=== PATIENT | male | born 1965 | race Caucasian/White ===

== ENCOUNTER 2016-11-29 22:48 | Emergency (ER) | payer MEDICARE, OTHER ==
[2016-11-29] MEDS ORDERED: SODIUM CHLORIDE 0.9% 500 ML IV STA (23:26)
[2016-11-29] MEDS ORDERED: IPRATROPIUM-ALBUTEROL 3 ML NEB INHALATION STA ×3 (23:26→23:42)
[2016-11-29] MEDS ORDERED: methylPREDNISolone SOD SUCCI 125 MG/2 ML VIAL IV STA (23:26)
[2016-11-29] MEDS ORDERED: ALBUTEROL NEB (CONC) 2.5 MG/0.5 ML INHALATION STA (23:33)
[2016-11-29] MEDS ORDERED: ONDANSETRON 4 MG/2 ML VIAL IVP STA (23:53)
--- NOTE | 2016-11-29 23:53 | ED ---
SOB HPI - General Chief Complaint: Shortness of Breath Stated Complaint: Difficulty Breathing Source: patient Mode of arrival: ambulatory Limitations: no limitations - History of Present Illness Initial Comments: 51-year-old male with past medical history of COPD and asthma presented for evaluation of shortness of breath for the last 2 days. He states that he takes Symbicort Ventolin and albuterol and has had no improvement in his symptoms. He has been having URI symptoms during this time and has taken no other medications including antibiotics or steroids. He has previously seen Dr. Nunez (pulm) but hasn't had a return visit in quite some time. He states the shortness of breath has progressively been worsening and has been associated with wheezing, productive cough of green sputum, and subjective fevers and chills. He denies any chest pain, abdominal pain, lightheadedness, or dizziness. - Related Data Previous Rx's Medication Instructions Recorded Albuterol Inhaler [Ventolin Hfa 1 - 2 puff INHALATION Q6HR PRN #1 11/05/14 Inhaler] inhaler Budesonide/Formoterol Fumarate 2 puff INHALATION BID #1 hfa.aer.ad 11/05/14 [Symbicort 80-4.5 Mcg Inhaler] Cyclobenzaprine [Flexeril] 10 mg PO TID #15 tab 06/06/16 HYDROcodone/APAP 5-325MG [Aubrey 1 tab PO Q6HR PRN #15 tab 06/06/16 5-325] Doxycycline Hyclate 100 mg PO BID #14 tab 11/30/16 predniSONE 50 mg PO DAILY #5 tab 11/30/16 Allergies Allergy/AdvReac Type Severity Reaction Status Date / Time hydromorphone [From Dilaudid] Allergy Nausea & Verified 06/05/16 23:33 Vomiting Review of Systems ROS Statement: Those systems with pertinent positive or pertinent negative responses have been documented in the HPI. ROS Other: All systems not noted in ROS Statement are negative. Constitutional: Reports: fever, chills Eyes: Denies: eye pain, eye discharge, vision change ENT: Denies: ear pain, throat pain Respiratory: Reports: cough, dyspnea, wheezes. Denies: hemoptysis, stridor Cardiovascular: Denies: chest pain, palpitations, dyspnea on exertion, orthopnea , edema Endocrine: Denies: fatigue, polydipsia, polyuria Gastrointestinal: Denies: abdominal pain, nausea, vomiting, diarrhea, constipation Genitourinary: Denies: urgency, dysuria Musculoskeletal: Denies: back pain, arthralgia, myalgia Skin: Denies: rash, lesions, change in color, change in hair/nails Neurological: Denies: headache, weakness Psychiatric: Denies: anxiety, depression Hematological/Lymphatic: Denies: easy bleeding, easy bruising Past Medical History Past Medical History: Asthma, COPD, GERD/Reflux History of Any Multi-Drug Resistant Organisms: None Reported Past Surgical History: Hernia Repair, Orthopedic Surgery Additional Past Surgical History / Comment(s): right elbow surgery Past Anesthesia/Blood Transfusion Reactions: No Reported Reaction Past Psychological History: No Psychological Hx Reported Smoking Status: Current every day smoker Past Alcohol Use History: None Reported Past Drug Use History: Marijuana - Past Family History Mother Family Medical History: COPD Additional Family Medical History / Comment(s): father passed had cancer General Exam Limitations: no limitations General appearance: alert, in no apparent distress Head exam: Present: atraumatic, normocephalic, normal inspection Eye exam: Present: normal appearance, PERRL, EOMI. Absent: scleral icterus, conjunctival injection, periorbital swelling ENT exam: Present: normal exam, mucous membranes moist Neck exam: Present: normal inspection. Absent: tenderness, meningismus, lymphadenopathy Respiratory exam: Present: wheezes, decreased breath sounds (bibasilar). Absent : respiratory distress, rales, rhonchi, stridor, chest wall tenderness, accessory muscle use, prolonged expiratory (throughout all pinto) Cardiovascular Exam: Present: normal rhythm, tachycardia, normal heart sounds. Absent: systolic murmur, diastolic murmur GI/Abdominal exam: Present: soft, normal bowel sounds. Absent: distended, tenderness, guarding, rebound, rigid Rectal exam: Present: deferred Extremities exam: Present: normal inspection, full ROM, normal capillary refill. Absent: tenderness, pedal edema, joint swelling, calf tenderness Back exam: Present: normal inspection Neurological exam: Present: alert, oriented X3, CN II-XII intact Psychiatric exam: Present: normal affect, normal mood Skin exam: Present: warm, dry, intact, normal color. Absent: rash Course Vital Signs 11/29/16 11/29/16 11/29/16 22:49 23:45 23:58 Temperature 98.1 F Pulse Rate 106 H 104 H 88 Respiratory 24 Rate Blood Pressure 148/82 O2 Sat by Pulse 94 L Oximetry 11/30/16 00:08 Temperature Pulse Rate 105 H Respiratory Rate Blood Pressure O2 Sat by Pulse Oximetry Medical Decision Making - Medical Decision Making 51-year-old male with past medical history of COPD and asthma presented for evaluation of 2 days of gradual onset shortness of breath, cough, wheezing with associated URI symptoms. On physical examination he is in no apparent distress but lungs reveal wheezing bilaterally with diminished breath sounds bibasilarly to auscultation. There is no accessory muscle use. Oxygen saturation on room air is 91%. The remainder of his physical exam is benign. Although this appears to be an episode of acute exacerbation of COPD concern for pneumonia is also on the differential. We'll obtain chest x-ray, EKG, labs , and provide breathing treatments and steroids. labs reveal marked leukocytosis but otherwise no other significant abnormalities including a negative influenza swab. Chest X or shows no acute process. The patient remained afebrile during the entire Steve visit although he did develop an episode of nausea and vomiting during breathing treatments and steroid injection. He stated that this resolved on its own and did not require Zofran. He is informed of all results and offered admission however he stated that he was feeling much better at this time and that he would like to be discharged. 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 He'll be given a prescription for doxycycline and prednisone. He is further advised to return to this facility if his symptoms should worsen or persist. The patient acknowledged an understanding of this information and agreed with this plan of care. - Lab Data Result diagrams: 11/29/16 23:50 11/29/16 23:50 Lab Results 11/29/16 11/29/16 11/29/16 Range/Units 23:50 23:50 23:50 WBC 21.5 H (3.8-10.6) k/uL RBC 4.68 (4.30-5.90) m/uL Hgb 14.8 (13.0-17.5) gm/dL Hct 44.8 (39.0-53.0) % MCV 95.7 (80.0-100.0) fL MCH 31.7 (25.0-35.0) pg MCHC 33.1 (31.0-37.0) g/dL RDW 14.0 (11.5-15.5) % Plt Count 244 (150-450) k/uL Neutrophils % 78 % Lymphocytes % 13 % Monocytes % 6 % Eosinophils % 1 % Basophils % 0 % Neutrophils # 16.8 H (1.3-7.7) k/uL Lymphocytes # 2.8 (1.0-4.8) k/uL Monocytes # 1.2 H (0-1.0) k/uL Eosinophils # 0.3 (0-0.7) k/uL Basophils # 0.1 (0-0.2) k/uL Sodium 139 (137-145) mmol/L Potassium 4.4 (3.5-5.1) mmol/L Chloride 107 (98-107) mmol/L Carbon Dioxide 22 (22-30) mmol/L Anion Gap 10 mmol/L BUN 13 (9-20) mg/dL Creatinine 0.90 (0.66-1.25) mg/dL Est GFR (MDRD) Af Amer >60 (>60 ml/min/1.73 sqM) Est GFR (MDRD) Non-Af >60 (>60 ml/min/1.73 sqM) Glucose 97 (74-99) mg/dL Calcium 9.3 (8.4-10.2) mg/dL Influenza Type A RNA Not Detected (Not Detectd) Influenza Type B (PCR) Not Detected (Not Detectd) Disposition Clinical Impression: Acute exacerbation of chronic obstructive pulmonary disease (COPD), URI (upper respiratory infection), COPD exacerbation Disposition: HOME SELF-CARE Condition: Stable Instructions: COPD (Chronic Obstructive Pulmonary Disease) (ED), Chronic Lung Disease and Infection Prevention (ED) Additional Instructions: Please use medication as discussed. Please follow up with family doctor if symptoms have not improved over the next two days. Please return to the emergency room if your symptoms increase or worsen or for any other concerns. Prescriptions: Doxycycline Hyclate 100 mg PO BID #14 tab predniSONE 50 mg PO DAILY #5 tab Referrals: None,Stated [Primary Care Provider] - 1-2 days Time of Disposition: 01:02
[2016-11-30] LABS: Basophils # (A) 0.1 k/uL (0-0.2); Basophils % (A) 0 %; CH 32.1; CHCM 33.8; Eosinophils # (A) 0.3 k/uL (0-0.7); Eosinophils % (A) 1 %; HCT 44.8 % (39.0-53.0); HDW 2.27; HGB 14.8 gm/dL (13.0-17.5); Luc # (Auto) 0.37; Luc % (Auto) 2; Lymphocytes # (A) 2.8 k/uL (1.0-4.8); Lymphocytes % (A) 13 %; MCH 31.7 pg (25.0-35.0); MCHC 33.1 g/dL (31.0-37.0); MCV 95.7 fL (80.0-100.0); Mean Platelet Volume 7.4; Monocytes # (A) 1.2 k/uL (0-1.0); Monocytes % (A) 6 %; Neutrophils # (A) 16.8 k/uL (1.3-7.7); Neutrophils % (A) 78 %; RBC 4.68 m/uL (4.30-5.90); WBC 21.5 k/uL (3.8-10.6); WBC (Perox) 21.25
[2016-11-30 00:17] LABS: Anion Gap 10 mmol/L; Blood Urea Nitrogen 13 mg/dL (9-20); Calcium 9.3 mg/dL (8.4-10.2); Carbon Dioxide 22 mmol/L (22-30); Chloride 107 mmol/L (98-107); Glucose 97 mg/dL (74-99); Non-African American GFR(MDRD) >60 (>60 ml/min/1.73 sqM); Potassium 4.4 mmol/L (3.5-5.1); Sodium 139 mmol/L (137-145)
--- NOTE | 2016-11-30 00:49 | XR ---
EXAM: XR Chest, 2 Views CLINICAL HISTORY: SOB TECHNIQUE: Frontal and lateral views of the chest. COMPARISON: Chest x-ray dated 11/04/2014 FINDINGS: Lungs: Unremarkable. No consolidation. Pleural space: Unremarkable. No pneumothorax. Heart: Unremarkable. No cardiomegaly. Mediastinum: Unremarkable. Bones/joints: Unremarkable. IMPRESSION: Normal chest x-rays.
[2016-11-30 01:20] VITALS: BP 117/60; PULSE 92; RESP 18; TEMP 100.3
== END 2016-11-30 01:20 | disposition home or self-care (01) ==
LOC: EC 22:48
DX: J44.1 Chronic obstructive pulmonary disease with (acute) exacerbation (principal); J06.9 Acute upper respiratory infection, unspecified; R11.2 Nausea with vomiting, unspecified; D72.829 Elevated white blood cell count, unspecified; F17.200 Nicotine dependence, unspecified, uncomplicated; Z88.5 Allergy status to narcotic agent; Z53.8 Procedure and treatment not carried out for other reasons
CPT/HCPCS: 99285; 96374; 96361 ×2; 36415; 94640 ×2; 93005; 80048; 85025; 87502; 71020; J2930

== ENCOUNTER 2016-12-05 18:08 | Inpatient (IN) | payer MEDICARE ==
[2016-12-05] MEDS ORDERED: methylPREDNISolone SOD SUCCI 125 MG/2 ML VIAL IV STA ×2 (18:32→18:36)
[2016-12-05] MEDS ORDERED: IPRATROPIUM-ALBUTEROL 3 ML NEB INHALATION STA ×2 (18:36→20:45)
[2016-12-05] MEDS ORDERED: ONDANSETRON 4 MG/2 ML VIAL IVP STA (18:39)
[2016-12-05] MEDS ORDERED: ALBUTEROL NEBULIZED 2.5 MG/3 ML INHALATION STA (18:43)
[2016-12-05 19:02] LABS: Basophils # (A) 0.1 k/uL (0-0.2); Basophils % (A) 1 %; CH 31.7; CHCM 33.3; Eosinophils # (A) 0.8 k/uL (0-0.7); Eosinophils % (A) 4 %; HCT 42.7 % (39.0-53.0); HDW 2.44; HGB 14.1 gm/dL (13.0-17.5); Luc # (Auto) 0.48; Luc % (Auto) 3; Lymphocytes # (A) 3.7 k/uL (1.0-4.8); Lymphocytes % (A) 19 %; MCH 31.7 pg (25.0-35.0); MCHC 33.1 g/dL (31.0-37.0); MCV 95.7 fL (80.0-100.0); Mean Platelet Volume 7.3; Monocytes # (A) 1.2 k/uL (0-1.0); Monocytes % (A) 6 %; Neutrophils # (A) 12.9 k/uL (1.3-7.7); Neutrophils % (A) 67 %; RBC 4.46 m/uL (4.30-5.90); RDW 14.3 % (11.5-15.5); WBC 19.2 k/uL (3.8-10.6); WBC (Perox) 17.81
[2016-12-05 19:11] LABS: ALT 42 U/L (21-72); AST 26 U/L (17-59); Alkaline Phosphatase 84 U/L (38-126); Anion Gap 9 mmol/L; Blood Urea Nitrogen 16 mg/dL (9-20); Calcium 8.7 mg/dL (8.4-10.2); Carbon Dioxide 27 mmol/L (22-30); Chloride 104 mmol/L (98-107); Glucose 95 mg/dL (74-99); Non-African American GFR(MDRD) >60 (>60 ml/min/1.73 sqM); Potassium 3.7 mmol/L (3.5-5.1); Sodium 140 mmol/L (137-145); Total Bilirubin 0.5 mg/dL (0.2-1.3); Total Protein 6.9 g/dL (6.3-8.2)
[2016-12-05 19:19] LABS: Creatine Kinase 285 U/L (55-170)
--- NOTE | 2016-12-05 19:27 | XR ---
EXAMINATION TYPE: XR chest 2V DATE OF EXAM: 12/05/2016 7:20 PM COMPARISON: 11/30/2016 and 12/31/2008 HISTORY: 51-year-old male difficulty breathing TECHNIQUE: PA and lateral views FINDINGS: Heart is normal size. Aorta within normal limits. Diffuse interstitial prominence and peribronchial c uffing. Mild hyperinflation. Large appearance to the central pulmonary arteries. No consolidation or pleural effusion. IMPRESSION: Chronic changes, possible chronic bronchitis/asthma. There may be underlying COPD. Also, chronic bila teral hilar prominence may reflect pulmonary arterial hypertension. No infiltrate.
[2016-12-05 19:29] LABS: Partial Thromboplastin Time 24.4 sec (22.0-30.0); Prothrombin Time 10.6 sec (9.0-12.0)
[2016-12-05 19:33] LABS: Troponin I <0.012 ng/mL (0.000-0.034)
[2016-12-05 19:35] LABS: Creatine Kinase MB 3.3 ng/mL (0.0-2.4)
--- NOTE | 2016-12-05 19:36 | ED ---
SOB HPI - General Chief Complaint: Shortness of Breath Stated Complaint: diff breathing Time Seen by Provider: 12/05/16 18:24 Source: patient Mode of arrival: wheelchair Limitations: no limitations - History of Present Illness Initial Comments: Shortness of breath is ongoing process unfortunately with the he has smoked over 40 years has a history of chronic COPD he denies any chest pain no nausea no vomiting no fever no chills he does bring up some phlegm and he has chest pain when he takes a deep breath. He denies any headaches no blurred vision no slurred speech no abdominal pain no signs of TIA or CVA he was recently on steroids she just finished a course of steroids - Related Data Home Medications Medication Instructions Recorded Confirmed Albuterol Inhaler [Ventolin Hfa 1 - 2 puff INHALATION RT-Q6H PRN 12/05/16 Inhaler] Albuterol Nebulized [Ventolin 2.5 mg INHALATION RT-QID 12/05/16 12/05/16 Nebulized] Budesonide/Formoterol Fumarate 2 puff INHALATION RT-BID 12/05/16 12/05/16 [Symbicort 80-4.5 Mcg Inhaler] Previous Rx's Medication Instructions Recorded Doxycycline Hyclate 100 mg PO BID #14 tab 11/30/16 Allergies Allergy/AdvReac Type Severity Reaction Status Date / Time hydromorphone [From Dilaudid] Allergy Nausea & Verified 12/05/16 19:16 Vomiting Review of Systems ROS Statement: Those systems with pertinent positive or pertinent negative responses have been documented in the HPI. ROS Other: All systems not noted in ROS Statement are negative. Past Medical History Past Medical History: Asthma, COPD, GERD/Reflux History of Any Multi-Drug Resistant Organisms: None Reported Past Surgical History: Hernia Repair, Orthopedic Surgery Additional Past Surgical History / Comment(s): right elbow surgery Past Anesthesia/Blood Transfusion Reactions: No Reported Reaction Past Psychological History: No Psychological Hx Reported Smoking Status: Current every day smoker Past Alcohol Use History: None Reported Past Drug Use History: Marijuana - Past Family History Mother Family Medical History: COPD Additional Family Medical History / Comment(s): father passed had cancer General Exam - General Exam Comments Initial Comments: General: The patient is awake and alert, in no distress Skin: Skin is warm and dry and no rashes or lesions are noted. Eye: Pupils are equal, round and reactive to light, extra-ocular movements are intact; there is normal conjunctiva bilaterally. Ears, nose, mouth and throat: There are moist mucous membranes and no oral lesions. Neck: The neck is supple, there is no tenderness or signs of any meningitis Cardiovascular: There is a regular rate and rhythm. No murmur, rub or gallop is appreciated. Respiratory: To auscultation bilateral, exam consistent with him moderate to severe COPD Gastrointestinal: Soft, non-distended, non-tender abdomen without masses or organomegaly noted. There is no rebound or guarding present. Bowel sounds are unremarkable. Back: There is no tenderness to palpation in the midline. There is no obvious deformity. Musculoskeletal: Normal ROM, no tenderness, There is no pedal edema. There is no calf tenderness or swelling. No cords were appreciated. Neurological: CN II-XII intact, Cranial nerves III through XII are intact. There are no obvious motor or sensory deficits. Coordination appears grossly intact. Speech is normal. Psychiatric: Cooperative, appropriate mood & affect, normal judgment. Limitations: no limitations Course Vital Signs 12/05/16 12/05/16 12/05/16 18:11 18:25 18:34 Temperature 98.6 F Pulse Rate 94 103 H Respiratory 22 22 Rate Blood Pressure 150/78 O2 Sat by Pulse 91 L Oximetry 12/05/16 12/05/16 12/05/16 18:44 18:48 19:00 Temperature Pulse Rate 94 91 99 Respiratory 26 H Rate Blood Pressure 131/68 O2 Sat by Pulse 95 Oximetry 12/05/16 12/05/16 12/05/16 19:48 20:49 20:50 Temperature Pulse Rate 90 97 81 Respiratory 25 H 24 Rate Blood Pressure 125/66 110/77 O2 Sat by Pulse 95 90 L Oximetry 12/05/16 21:01 Temperature Pulse Rate 85 Respiratory Rate Blood Pressure O2 Sat by Pulse Oximetry EKG is a normal sinus rhythm ventricular rate is 83 AL interval is 1:30 QRS duration is 78 QT/QTc is 356/418 review of this EKG does not reveal any ST elevation or ST depression Medical Decision Making - Lab Data Result diagrams: 12/05/16 18:25 12/05/16 18:25 Lab Results 12/05/16 12/05/16 12/05/16 Range/Units 18:25 18:25 18:25 WBC 19.2 H (3.8-10.6) k/uL RBC 4.46 (4.30-5.90) m/uL Hgb 14.1 (13.0-17.5) gm/dL Hct 42.7 (39.0-53.0) % MCV 95.7 (80.0-100.0) fL MCH 31.7 (25.0-35.0) pg MCHC 33.1 (31.0-37.0) g/dL RDW 14.3 (11.5-15.5) % Plt Count 331 (150-450) k/uL Neutrophils % 67 % Lymphocytes % 19 % Monocytes % 6 % Eosinophils % 4 % Basophils % 1 % Neutrophils # 12.9 H (1.3-7.7) k/uL Lymphocytes # 3.7 (1.0-4.8) k/uL Monocytes # 1.2 H (0-1.0) k/uL Eosinophils # 0.8 H (0-0.7) k/uL Basophils # 0.1 (0-0.2) k/uL PT (9.0-12.0) sec INR (<1.1) APTT (22.0-30.0) sec D-Dimer (<0.60) mg/L FEU Sodium 140 (137-145) mmol/L Potassium 3.7 (3.5-5.1) mmol/L Chloride 104 (98-107) mmol/L Carbon Dioxide 27 (22-30) mmol/L Anion Gap 9 mmol/L BUN 16 (9-20) mg/dL Creatinine 0.86 (0.66-1.25) mg/dL Est GFR (MDRD) Af Amer >60 (>60 ml/min/1.73 sqM) Est GFR (MDRD) Non-Af >60 (>60 ml/min/1.73 sqM) Glucose 95 (74-99) mg/dL Calcium 8.7 (8.4-10.2) mg/dL Magnesium 2.0 (1.6-2.3) mg/dL Total Bilirubin 0.5 (0.2-1.3) mg/dL AST 26 (17-59) U/L ALT 42 (21-72) U/L Alkaline Phosphatase 84 (38-126) U/L Total Creatine Kinase 285 H (55-170) U/L CK-MB (CK-2) 3.3 H* (0.0-2.4) ng/mL CK-MB (CK-2) Rel Index 1.2 Troponin I <0.012 (0.000-0.034) ng/mL NT-Pro-B Natriuret Pep pg/mL Total Protein 6.9 (6.3-8.2) g/dL Albumin 3.8 (3.5-5.0) g/dL 12/05/16 12/05/16 Range/Units 18:25 18:25 WBC (3.8-10.6) k/uL RBC (4.30-5.90) m/uL Hgb (13.0-17.5) gm/dL Hct (39.0-53.0) % MCV (80.0-100.0) fL MCH (25.0-35.0) pg MCHC (31.0-37.0) g/dL RDW (11.5-15.5) % Plt Count (150-450) k/uL Neutrophils % % Lymphocytes % % Monocytes % % Eosinophils % % Basophils % % Neutrophils # (1.3-7.7) k/uL Lymphocytes # (1.0-4.8) k/uL Monocytes # (0-1.0) k/uL Eosinophils # (0-0.7) k/uL Basophils # (0-0.2) k/uL PT 10.6 (9.0-12.0) sec INR 1.0 (<1.1) APTT 24.4 (22.0-30.0) sec D-Dimer 0.31 (<0.60) mg/L FEU Sodium (137-145) mmol/L Potassium (3.5-5.1) mmol/L Chloride (98-107) mmol/L Carbon Dioxide (22-30) mmol/L Anion Gap mmol/L BUN (9-20) mg/dL Creatinine (0.66-1.25) mg/dL Est GFR (MDRD) Af Amer (>60 ml/min/1.73 sqM) Est GFR (MDRD) Non-Af (>60 ml/min/1.73 sqM) Glucose (74-99) mg/dL Calcium (8.4-10.2) mg/dL Magnesium (1.6-2.3) mg/dL Total Bilirubin (0.2-1.3) mg/dL AST (17-59) U/L ALT (21-72) U/L Alkaline Phosphatase (38-126) U/L Total Creatine Kinase (55-170) U/L CK-MB (CK-2) (0.0-2.4) ng/mL CK-MB (CK-2) Rel Index Troponin I (0.000-0.034) ng/mL NT-Pro-B Natriuret Pep 85 pg/mL Total Protein (6.3-8.2) g/dL Albumin (3.5-5.0) g/dL Critical Care Time Total Critical Care Time: 30 Critical Care Time: Since the respiratory rate was quite fast when he came in he got short acting bronchodilators and Pulmicort, he also was giving him IV Solu-Medrol and empirically was given some antibiotics as well and is feeling better his white count is 19.2 this could be from occult infection or could be secondary to his steroids she has been on steroids recently and both events he will get some antibiotics and will consult pulmonary medicine as well his oxygen level is quite low on her 5 L he was doing 89 I spoke with him and he is agreeable that he needs Disposition Clinical Impression: Acute exacerbation of COPD with asthma, Leukocytosis, Hypoxia Disposition: ADMITTED IP TO THIS HOSP Referrals: None,Stated [Primary Care Provider] - 1-2 days
[2016-12-05 22:42] VITALS: BMI 28.3
[2016-12-05] MEDS: IPRATROPIUM-ALBUTEROL 3 ML NEB INHALATION PRN (23:18)
[2016-12-05] MEDS: methylPREDNISolone SOD SUCCI 40 MG/ML 1 ML VIAL IV SCH (23:38)
[2016-12-05] MEDS ORDERED: ACETAMINOPHEN TAB 325 MG TAB PO PRN (23:38)
[2016-12-06] MEDS: IPRATROPIUM-ALBUTEROL 3 ML NEB INHALATION PRN ×3 (03:51→20:24)
[2016-12-06] MEDS: SODIUM CHLORIDE 0.9% 1,000 ML IV SCH ×3 (06:23→17:55)
[2016-12-06] MEDS: LEVOFLOXACIN 500 MG TAB PO SCH (07:59)
[2016-12-06] MEDS: NICOTINE 21MG/24HR PATCH TRANSDERM SCH (07:59)
[2016-12-06] MEDS: methylPREDNISolone SOD SUCCI 40 MG/ML 1 ML VIAL IV SCH ×3 (08:00→23:20)
[2016-12-06] MEDS ORDERED: BUDESONIDE 0.5 MG/2 ML NEBU INHALATION SCH (08:00)
[2016-12-06] MEDS: SYMBICORT 80-4.5 MCG INHALER INHALATION SCH ×2 (08:53→20:24)
--- NOTE | 2016-12-06 14:28 | P.CNPUL ---
History of Present Illness Consult date: 12/06/16 Reason for consult: dyspnea, COPD History of present illness: 51-year-old male patient, a known smoker, along with history of COPD, who came into the hospital approximately a week ago for increased shortness of breath. The patient was given a prednisone burst taper and the patient was discharged home. He was using Symbicort at home along with a Louis her nebulizer on an as -needed basis. He was getting progressively more worse and more short of breath to the point where the patient was unable to perform activities of daily life. Denied having any chest pain. A congested cough. Unable to bring up much sputum. No fever. No chills no night sweats. No pleurisy. No hemoptysis. No swelling lower extremities. He is in extensive smoker and at one point was smoking up to 4 pack of cigarettes a day currently is down, however he still smoking and is with a fiance also smokes in the house. No previous history failure. No childhood asthma. No other complaints otherwise for now. The chest x-ray is free of any acute pulmonary infiltrates. Review of Systems All systems: negative Constitutional: Denies chills, Denies fever Eyes: denies blurred vision, denies pain Ears, nose, mouth and throat: Denies headache, Denies sore throat Cardiovascular: Reports shortness of breath, Denies chest pain Respiratory: Reports congestion, Reports cough, Reports cough with sputum, Reports dyspnea, Reports respiratory infections, Reports wheezing Gastrointestinal: Denies abdominal pain, Denies diarrhea, Denies nausea, Denies vomiting Musculoskeletal: Denies myalgias Integumentary: Denies pruritus, Denies rash Neurological: Denies numbness, Denies weakness Psychiatric: Denies anxiety, Denies depression Endocrine: Denies fatigue, Denies weight change Past Medical History Past Medical History: Asthma, COPD, GERD/Reflux Additional Past Medical History / Comment(s): COPD History of Any Multi-Drug Resistant Organisms: None Reported Past Surgical History: Hernia Repair, Orthopedic Surgery Additional Past Surgical History / Comment(s): right elbow surgery Past Anesthesia/Blood Transfusion Reactions: No Reported Reaction Past Psychological History: No Psychological Hx Reported Smoking Status: Current every day smoker Past Alcohol Use History: None Reported Past Drug Use History: Marijuana - Past Family History Mother Family Medical History: COPD Additional Family Medical History / Comment(s): father passed had cancer Medications and Allergies Home Medications Medication Instructions Recorded Confirmed Type Albuterol Inhaler [Ventolin Hfa 1 - 2 puff INHALATION RT-Q6H PRN 12/05/16 History Inhaler] Albuterol Nebulized [Ventolin 2.5 mg INHALATION RT-QID 12/05/16 12/05/16 History Nebulized] Budesonide/Formoterol Fumarate 2 puff INHALATION RT-BID 12/05/16 12/05/16 History [Symbicort 80-4.5 Mcg Inhaler] Allergies Allergy/AdvReac Type Severity Reaction Status Date / Time hydromorphone [From Dilaudid] Allergy Nausea & Verified 12/05/16 19:16 Vomiting Physical Exam Vitals: Vital Signs Temp Pulse Pulse Resp BP BP Pulse Ox 12/06/16 09:02 80 12/06/16 08:11 94 L 12/06/16 08:00 74 18 12/06/16 07:00 97.7 F 74 18 128/63 87 L 12/06/16 04:02 80 12/06/16 03:51 76 12/05/16 23:31 80 12/05/16 23:21 97.8 F 78 20 119/68 92 L 12/05/16 23:18 77 12/05/16 21:48 92 20 138/64 92 L 12/05/16 21:01 85 12/05/16 20:50 81 24 110/77 90 L 12/05/16 20:49 97 12/05/16 19:48 90 25 H 125/66 95 12/05/16 19:00 99 12/05/16 18:48 91 26 H 131/68 95 12/05/16 18:44 94 12/05/16 18:34 103 H 12/05/16 18:25 22 12/05/16 18:11 98.6 F 94 22 150/78 91 L Intake and Output 12/05/16 12/06/16 12/06/16 22:59 06:59 14:59 Intake Total 350 1280 Balance 350 1280 Intake: Oral 350 1280 Other: Voiding Method Toilet Toilet # Voids 2 4 Weight 74.843 kg The patient appeared well nourished and normally developed. Vital signs as documented. Head exam is unremarkable. No scleral icterus or corneal arcus noted. Neck is without jugular venous distension, thyromegaly, or carotid bruits. Carotid upstrokes are brisk bilaterally. Lungs are diminished along with that there is diffuse extremity wheezes throughout the lung pinto bilaterally.. Cardiac exam reveals the PMI to be normally sized and situated. Rhythm is regular. First and second heart sounds normal. No murmurs, rubs or gallops. Abdominal exam reveals normal bowel sounds, no masses, no organomegaly and no aortic enlargement. Extremities are nonedematous and both femoral and pedal pulses are normal. Results - Laboratory Findings CBC and BMP: 12/05/16 18:25 12/05/16 18:25 PT/INR, D-dimer PT 10.6 sec (9.0-12.0) 12/05/16 18: INR 1.0 (<1.1) 12/05/16 18:25 D-Dimer 0.31 mg/L FEU (<0.60) 12/05/16 18:25 Abnormal lab findings: Abnormal Labs 12/05/16 12/05/16 18:25 18:25 WBC 19.2 H Neutrophils # 12.9 H Monocytes # 1.2 H Eosinophils # 0.8 H Total Creatine Kinase 285 H CK-MB (CK-2) 3.3 H* - Diagnostic Findings Chest x-ray: image reviewed Assessment and Plan Plan: Assessment 1 acute COPD exacerbation/acute tracheobronchitis, failed outpatient therapy 2 shortness of breath secondary to above 3 leukocytosis 4 nicotine addiction/smoking Plan Immediate smoking cessation. Smoking cessation counseling was done for this patient. We'll continue DuoNeb nebulized treatments around the clock. We'll continue IV Solu Medrol. We'll continue the empiric antibiotic coverage with Levaquin 500 mg by mouth daily. Nicotine patch. Symbicort will be resumed. Outpatient follow-up regarding his COPD including a poorly function test and further adjustments on inhaler based on his overall clinical response. Meanwhile, to this patient as an inpatient basis regarding his COPD exacerbation. Add subcu heparin for DVT prophylaxis.
[2016-12-06] MEDS: HEPARIN SODIUM,PORCINE 5,000 UNIT/ML 1 ML VIAL SQ SCH ×2 (16:13→21:15)
[2016-12-07] MEDS: SODIUM CHLORIDE 0.9% 1,000 ML IV SCH ×3 (05:11→23:59)
[2016-12-07] MEDS: NICOTINE 21MG/24HR PATCH TRANSDERM SCH (08:01)
[2016-12-07] MEDS: LEVOFLOXACIN 500 MG TAB PO SCH (08:01)
[2016-12-07] MEDS: methylPREDNISolone SOD SUCCI 40 MG/ML 1 ML VIAL IV SCH ×3 (08:02→23:59)
[2016-12-07] MEDS: HEPARIN SODIUM,PORCINE 5,000 UNIT/ML 1 ML VIAL SQ SCH ×2 (08:02→22:01)
[2016-12-07] MEDS: IPRATROPIUM-ALBUTEROL 3 ML NEB INHALATION PRN ×4 (08:23→20:42)
[2016-12-07] MEDS: SYMBICORT 80-4.5 MCG INHALER INHALATION SCH ×2 (08:24→20:42)
--- NOTE | 2016-12-07 14:48 | P.PN ---
Subjective 51-year-old seen and evaluated this morning. Patient states breathing feels slightly improved but continues to feel short of breath. Patient states with movement it causes a cough. Patient's noted a congested cough. Not able to bring up secretions. Patient has an extensive nicotine dependency has smoked up to 4 packs a day. Patient states is currently trying to cut down or quit. He states he and his fiance smoke in the house has a greater than a 40 year history of smoking. Patients being followed by pulmonology. Chest x-ray showed no evidence of an acute pulmonary infiltrate patient was admitted to the services of the attending. In the emergency room patient's pulse ox sat is in the 80s patient needed to be supplemented with 5 L of nasal cannula to keep the sat of 89. Patient white count on admission was 19.2 could be an occult infection or secondary to steroids. Patient recently had been given oral steroids patient stated about a week ago he stated that he did come into the hospital about a week ago for the same symptoms. At that time patient was given prednisone burst taper and was discharged home. He states he been using his Symbicort at home along with nebulizers on an as-needed basis but the symptoms became symptomatic interfered with activity of daily living Objective - Vital Signs Vital signs: Vital Signs Temp 97.9 F 12/07/16 07:00 Pulse 84 12/07/16 12:03 Resp 16 12/07/16 08:00 BP 124/67 12/07/16 07:00 Pulse Ox 97 12/07/16 08:24 Intake & Output 12/06/16 12/07/16 12/07/16 18:59 06:59 18:59 Intake Total 1280 Balance 1280 Weight 74.843 kg 74.843 kg Intake: Oral 1280 Other: Voiding Method Toilet Toilet Toilet # Voids 4 2 2 - Exam Physical exam 50-year-old male looking older than stated age continues to report feeling short of breath Lungs diminished at the bases with prolonged expiratory wheezing noted heart nonproductive cough noted on 4 L sats are 97% Heart S1-S2 audible regular Abdomen soft nontender reports no nausea vomiting Extremities no edema noted - Labs CBC & Chem 7: 12/05/16 18:25 12/05/16 18:25 Labs: Microbiology - Last 24 Hours (Table) 12/05/16 18:25 Blood Culture - Preliminary Blood No Growth after 24 hours Assessment and Plan Plan: Impression Present on admission shortness of breath due to an acute exacerbation of COPD with acute tracheobronchitis failed outpatient therapy An extensive nicotine addiction smoking greater than a 40 year history Leukocytosis present on admission suspect reactive for steroid related on oral steroids 1 week prior Shortness of breath present on admission due to the acute exacerbation of COPD with tracheal bronchitis chest x-ray on admission chronic changes underlying COPD no infiltrate noted Plan Recommendations by pulmonology service defer to Titrate the O2 keep sats greater than 90 DVT and GI prophylaxis Patient has been counseled to stop smoking cigarettes smoking cessation information will be provided Continue Solu-Medrol 40 IV every 8 monitor response Continue Symbicort as ordered IV fluid at 100cc hr The above dictated assessment and findings were discussed with dr thu Barboza and the plan of care have been dictated as directed. Laura Worrell nurse practitioner acting as a scribe for dr andino
--- NOTE | 2016-12-07 16:48 | P.PN ---
Subjective Principal diagnosis: Acute exacerbation of COPD 51-year-old male patient, a known smoker, along with history of COPD, who came into the hospital approximately a week ago for increased shortness of breath. The patient was given a prednisone burst taper and the patient was discharged home. He was using Symbicort at home along with a Louis her nebulizer on an as -needed basis. He was getting progressively more worse and more short of breath to the point where the patient was unable to perform activities of daily life. Denied having any chest pain. A congested cough. Unable to bring up much sputum. No fever. No chills no night sweats. No pleurisy. No hemoptysis. No swelling lower extremities. He is in extensive smoker and at one point was smoking up to 4 pack of cigarettes a day currently is down, however he still smoking and is with a fiance also smokes in the house. No previous history failure. No childhood asthma. No other complaints otherwise for now. The chest x-ray is free of any acute pulmonary infiltrates. Patient was reevaluated today on 12/07/2016, continues to have cough wheezing and shortness of breath. Improvement is rather minimal. No fever no chills no hemoptysis no chest pain. Chest x-ray on admission showed no evidence of pulmonary infiltrates. Objective - Vital Signs Vital signs: Vital Signs Temp 98.0 F 12/07/16 14:52 Pulse 85 12/07/16 16:00 Resp 20 12/07/16 16:00 BP 139/88 12/07/16 14:52 Pulse Ox 95 12/07/16 14:52 Intake & Output 12/06/16 12/07/16 12/07/16 18:59 06:59 18:59 Intake Total 1280 600 Balance 1280 600 Weight 74.843 kg 74.843 kg Intake: Oral 1280 600 Other: Voiding Method Toilet Toilet Toilet # Voids 4 2 2 - Exam Physical Exam: Revealed a 51-year-old in no distress HEENT:[Neck is supple.] [No neck masses.] [No thyromegaly.] [No JVD.] Chest: [Diffuse rhonchi and wheezes noted bilaterally.] Cardiac Exam: [Normal S1 and S2, no S3 gallop, no murmur.] Abdomen: [Soft, nontender, no megaly, no rebound, no guarding, normal bowel sounds.] Extremities: [No clubbing, no edema, no cyanosis.] Neurological Exam: [No focal neurologic deficit.] - Labs CBC & Chem 7: 12/05/16 18:25 12/05/16 18:25 Labs: Microbiology - Last 24 Hours (Table) 12/05/16 18:25 Blood Culture - Preliminary Blood No Growth after 24 hours Assessment and Plan Plan: 1 acute COPD exacerbation/acute tracheobronchitis, failed outpatient therapy 2 shortness of breath secondary to above 3 leukocytosis 4 nicotine addiction/smoking Recommendation: Continue present course of bronchodilators, antibiotics, steroids, not ready for discharge planning at this point. Continue GI and DVT prophylaxis. Time with Patient: Less than 30
[2016-12-07] MEDS: FAMOTIDINE 20 MG TAB PO SCH (22:01)
--- NOTE | 2016-12-07 23:47 | HP ---
DATE OF ADMISSION: CHIEF COMPLAINT: Difficulty breathing. HISTORY OF PRESENT ILLNESS: This is the first known admission for this 51-year-old white male. He has a history of COPD and started to have increasing difficulty and came to the emergency room. He has not been seen in the office for 2 years. REVIEW OF SYSTEMS: He has had no headaches, neurologic problems, chest pain, hemoptysis, heart disease, hypertension, angina, infarctions, abdominal pain, nausea, vomiting, hematemesis, melena, hematochezia, jaundice, hematuria, frequency, urgency, arthralgias, polys, diabetes, etc. Past medical history, family history and personal and social histories are all otherwise unremarkable and noncontributory. ALLERGIES: VICODIN. MEDICATIONS: 1. Symbicort. 2. Albuterol. 3. He has a nebulizer. Surgically he has had a procedure on his right elbow and he has had a right inguinal hernia. He does not drink and he smokes at least a pack of cigarettes a day. PHYSICAL EXAMINATION: Blood pressure 151/86 with a pulse of 110 and irregular. Respirations were 38. He is afebrile. In general he appeared to be short of breath. He is slightly overweight. Skin was dry. Head, ears, eyes, nose, mouth and throat were normal. Neck veins were not distended. Thyroid was not enlarged. Chest demonstrated increased AP diameter with very poor breath sounds throughout. He has wheezes, rales and rhonchi with a prolonged inspiratory and expiratory phase. Abdomen is soft, nontender. Extremities are normal. Neurologically he is intact. IMPRESSION: Exacerbation of chronic obstructive pulmonary disease. PLAN: 1. Bed rest. 2. IV fluids. 3. Updrafts. 4. Inhaled steroids. Intravenous steroids will be withheld because he has problems with them.
--- NOTE | 2016-12-07 23:48 | PN ---
DATE OF SERVICE: 12/06/2016 CHIEF COMPLAINT: Exacerbation of COPD. HISTORY OF PRESENT ILLNESS: This gentleman is not doing much better. He is still very short of breath. PHYSICAL EXAMINATION: Breath sounds are very poor. He has rales and rhonchi throughout. Cardiac exam demonstrates tachycardia. IMPRESSION: Exacerbation of chronic obstructive pulmonary disease. PLAN: Continue on current program.
--- NOTE | 2016-12-07 23:57 | PN ---
DATE OF SERVICE: 12/07/2016 CHIEF COMPLAINT: Exacerbation of COPD. HISTORY OF PRESENT ILLNESS: This gentleman is doing a little bit better ( ) only improved slightly. PHYSICAL EXAMINATION: Rales are scattered throughout. He has wheezing on inspiration and expiration. Breath sounds are very poor. He has an increased AP diameter. IMPRESSION: Exacerbation of chronic obstructive pulmonary disease. PLAN: Continue on current program.
[2016-12-08 07:37] VITALS: RESP 16
[2016-12-08 08:13] LABS: ALT 39 U/L (21-72); AST 21 U/L (17-59); Alkaline Phosphatase 79 U/L (38-126); Anion Gap 11 mmol/L; Blood Urea Nitrogen 20 mg/dL (9-20); Carbon Dioxide 23 mmol/L (22-30); Chloride 106 mmol/L (98-107); Glucose 125 mg/dL (74-99); Non-African American GFR(MDRD) >60 (>60 ml/min/1.73 sqM); Potassium 4.8 mmol/L (3.5-5.1); Sodium 140 mmol/L (137-145); Total Bilirubin 0.4 mg/dL (0.2-1.3)
[2016-12-08] MEDS: NICOTINE 21MG/24HR PATCH TRANSDERM SCH (08:15)
[2016-12-08] MEDS: LEVOFLOXACIN 500 MG TAB PO SCH (08:16)
[2016-12-08] MEDS: HEPARIN SODIUM,PORCINE 5,000 UNIT/ML 1 ML VIAL SQ SCH ×2 (08:16→20:53)
[2016-12-08] MEDS: methylPREDNISolone SOD SUCCI 40 MG/ML 1 ML VIAL IV SCH ×2 (08:17→16:04)
[2016-12-08] MEDS: SODIUM CHLORIDE 0.9% 1,000 ML IV SCH ×2 (08:17→16:08)
[2016-12-08] MEDS: IPRATROPIUM-ALBUTEROL 3 ML NEB INHALATION PRN ×4 (09:15→20:19)
[2016-12-08] MEDS: SYMBICORT 80-4.5 MCG INHALER INHALATION SCH ×2 (09:15→20:18)
--- NOTE | 2016-12-08 12:11 | P.PN ---
Subjective 51-year-old male seen and evaluated sitting up on the edge of the bed taking a diet "I finally was able to get some sleep last night and finally feel like I can breathe patient states he feels that the steroids are helping. no fever no chills no hemoptysis no chest pain. Patients being followed by pulmonology service sats on room air are 92%. Objective - Vital Signs Vital signs: Vital Signs Temp 97.6 F 12/08/16 07:00 Pulse 84 12/08/16 11:58 Resp 16 12/08/16 07:00 BP 116/65 12/08/16 07:00 Pulse Ox 92 L 12/08/16 07:00 Intake & Output 12/07/16 12/08/16 12/08/16 18:59 06:59 18:59 Intake Total 600 10 Balance 600 10 Weight 74.843 kg Intake: IV 10 saline flush 10 Oral 600 Other: Voiding Method Toilet Toilet Toilet # Voids 2 2 1 - Exam Physical exam 50-year-old male sitting up on the edge of the bed taking a diet states breathing has improved was able to sleep last night Lungs diminished at the bases with prolonged expiratory wheezing noted harsh nonproductive cough noted currently on room air sats are 90 to 92% Heart S1-S2 audible regular no murmur noted Abdomen soft nontender reports no nausea vomiting Extremities no edema noted - Labs CBC & Chem 7: 12/05/16 18:25 12/08/16 07:12 Labs: Abnormal Lab Results - Last 24 Hours (Table) 12/08/16 Range/Units 07:12 Glucose 125 H (74-99) mg/dL Microbiology - Last 24 Hours (Table) 12/05/16 18:25 Blood Culture - Preliminary Blood No Growth after 48 hours Assessment and Plan Plan: Impression Present on admission shortness of breath due to an acute exacerbation of COPD with acute tracheobronchitis failed outpatient therapy An extensive nicotine addiction smoking greater than a 40 year history Leukocytosis present on admission suspect reactive for steroid related on oral steroids 1 week prior Shortness of breath present on admission due to the acute exacerbation of COPD with tracheal bronchitis chest x-ray on admission chronic changes underlying COPD no infiltrate noted Plan Recommendations by pulmonology service defer to Titrate the O2 keep sats greater than 90 DVT and GI prophylaxis Patient has been counseled to stop smoking cigarettes smoking cessation information will be provided Continue Solu-Medrol 40 IV every 8 monitor response Continue Symbicort as ordered IV fluid at 100cc hr The above dictated assessment and findings were discussed with dr thu Barboza and the plan of care have been dictated as directed. Laura Worrell nurse practitioner acting as a scribe for dr andino
--- NOTE | 2016-12-08 14:01 | P.PN ---
Subjective Principal diagnosis: COPD exacerbation 51-year-old male patient, a known smoker, along with history of COPD, who came into the hospital approximately a week ago for increased shortness of breath. The patient was given a prednisone burst taper and the patient was discharged home. He was using Symbicort at home along with a Louis her nebulizer on an as -needed basis. He was getting progressively more worse and more short of breath to the point where the patient was unable to perform activities of daily life. Denied having any chest pain. A congested cough. Unable to bring up much sputum. No fever. No chills no night sweats. No pleurisy. No hemoptysis. No swelling lower extremities. He is in extensive smoker and at one point was smoking up to 4 pack of cigarettes a day currently is down, however he still smoking and is with a fiance also smokes in the house. No previous history failure. No childhood asthma. No other complaints otherwise for now. The chest x-ray is free of any acute pulmonary infiltrates. Patient was reevaluated today on 12/07/2016, continues to have cough wheezing and shortness of breath. Improvement is rather minimal. No fever no chills no hemoptysis no chest pain. Chest x-ray on admission showed no evidence of pulmonary infiltrates. The patient was seen and evaluated again 12/08/2016 in follow-up. He is awake and alert in no acute distress. He is Jayne breathing better today as compared to yesterday. He can actually lay flat in bed. He is maintaining good O2 saturations in the low 90s on room air. He is afebrile. Hemodynamically stable. He has been up ambulating without acute distress. Objective - Vital Signs Vital signs: Vital Signs Temp 97.6 F 12/08/16 07:00 Pulse 88 12/08/16 12:09 Resp 16 12/08/16 07:00 BP 116/65 12/08/16 07:00 Pulse Ox 92 L 12/08/16 07:00 Intake & Output 12/07/16 12/08/16 12/08/16 18:59 06:59 18:59 Intake Total 600 10 Balance 600 10 Weight 74.843 kg Intake: IV 10 saline flush 10 Oral 600 Other: Voiding Method Toilet Toilet Toilet # Voids 2 2 1 - Exam GENERAL EXAM: Alert, active, comfortable in no apparent distress. HEAD: Normocephalic. EYES: Normal reaction of pupils, equal size. NOSE: Clear with pink turbinates. THROAT: No erythema or exudates. NECK: No masses, no JVD. CHEST: No chest wall deformity. LUNGS: Equal air entry with end expiratory wheeze. Diminished throughout. CVS: S1 and S2 normal with no audible murmurs, regular rhythm. ABDOMEN: No hepatosplenomegaly, normal bowel sounds, no guarding or rigidity. SPINE: No scoliosis or deformity SKIN: No rashes CENTRAL NERVOUS SYSTEM: No focal deficits, tone is normal in all 4 extremities. Extremities: There is no significant peripheral edema. No clubbing, no cyanosis. Peripheral pulses are intact. - Labs CBC & Chem 7: 12/05/16 18:25 12/08/16 07:12 Labs: Abnormal Lab Results - Last 24 Hours (Table) 12/08/16 Range/Units 07:12 Glucose 125 H (74-99) mg/dL Microbiology - Last 24 Hours (Table) 12/05/16 18:25 Blood Culture - Preliminary Blood No Growth after 48 hours Assessment and Plan Plan: Impression: 1 acute COPD exacerbation/acute tracheobronchitis, failed outpatient therapy 2 shortness of breath secondary to above 3 leukocytosis 4 nicotine addiction/smoking Plan: The patient was seen and evaluated by Dr. Nunez. We have again educated the patient regarding complete smoking cessation. Counseling was done in 3-10 minutes. We'll continue with his current medications including bronchodilators , Symbicort, IV Solu-Medrol, antibiotics. We'll plan to convert him to oral prednisone in the a.m. We will continue to follow.
[2016-12-08] MEDS: FAMOTIDINE 20 MG TAB PO SCH (20:53)
[2016-12-09] MEDS: methylPREDNISolone SOD SUCCI 40 MG/ML 1 ML VIAL IV SCH ×2 (00:19→09:15)
[2016-12-09] MEDS: IPRATROPIUM-ALBUTEROL 3 ML NEB INHALATION PRN ×3 (07:40→15:09)
[2016-12-09] MEDS: SYMBICORT 80-4.5 MCG INHALER INHALATION SCH (07:40)
[2016-12-09 07:55] VITALS: BP 127/76; TEMP 97.7
[2016-12-09] MEDS: SODIUM CHLORIDE 0.9% 1,000 ML IV SCH (09:14)
[2016-12-09] MEDS: NICOTINE 21MG/24HR PATCH TRANSDERM SCH (09:14)
[2016-12-09] MEDS: HEPARIN SODIUM,PORCINE 5,000 UNIT/ML 1 ML VIAL SQ SCH (09:15)
[2016-12-09] MEDS: LEVOFLOXACIN 500 MG TAB PO SCH (09:15)
--- NOTE | 2016-12-09 11:34 | P.PN ---
Subjective Principal diagnosis: COPD exacerbation 51-year-old male patient, a known smoker, along with history of COPD, who came into the hospital approximately a week ago for increased shortness of breath. The patient was given a prednisone burst taper and the patient was discharged home. He was using Symbicort at home along with a Louis her nebulizer on an as -needed basis. He was getting progressively more worse and more short of breath to the point where the patient was unable to perform activities of daily life. Denied having any chest pain. A congested cough. Unable to bring up much sputum. No fever. No chills no night sweats. No pleurisy. No hemoptysis. No swelling lower extremities. He is in extensive smoker and at one point was smoking up to 4 pack of cigarettes a day currently is down, however he still smoking and is with a fiance also smokes in the house. No previous history failure. No childhood asthma. No other complaints otherwise for now. The chest x-ray is free of any acute pulmonary infiltrates. Patient was reevaluated today on 12/07/2016, continues to have cough wheezing and shortness of breath. Improvement is rather minimal. No fever no chills no hemoptysis no chest pain. Chest x-ray on admission showed no evidence of pulmonary infiltrates. The patient was seen and evaluated again 12/08/2016 in follow-up. He is awake and alert in no acute distress. He is Jayne breathing better today as compared to yesterday. He can actually lay flat in bed. He is maintaining good O2 saturations in the low 90s on room air. He is afebrile. Hemodynamically stable. He has been up ambulating without acute distress. The patient is seen again today 12/09/2016 in follow-up on the regular medical floor. He's been up ambulating without acute distress. He is nearly back to his baseline. He is anxious to go home. He denies any worsening shortness of breath, cough or congestion. He is maintaining good O2 saturations in the mid 90s on room air. He is afebrile. Blood cultures revealed no growth to date. Objective - Vital Signs Vital signs: Vital Signs Temp 97.7 F 12/09/16 07:00 Pulse 80 12/09/16 11:27 Resp 16 12/09/16 07:00 BP 127/76 12/09/16 07:00 Pulse Ox 96 12/09/16 07:00 Intake & Output 12/08/16 12/09/16 12/09/16 18:59 06:59 18:59 Intake Total 360 Balance 360 Intake: Oral 360 Other: Voiding Method Toilet Toilet # Voids 2 - Exam GENERAL EXAM: Alert, active, comfortable in no apparent distress. HEAD: Normocephalic. EYES: Normal reaction of pupils, equal size. NOSE: Clear with pink turbinates. THROAT: No erythema or exudates. NECK: No masses, no JVD. CHEST: No chest wall deformity. LUNGS: Equal air entry with end expiratory wheeze. Diminished throughout. CVS: S1 and S2 normal with no audible murmurs, regular rhythm. ABDOMEN: No hepatosplenomegaly, normal bowel sounds, no guarding or rigidity. SPINE: No scoliosis or deformity SKIN: No rashes CENTRAL NERVOUS SYSTEM: No focal deficits, tone is normal in all 4 extremities. Extremities: There is no significant peripheral edema. No clubbing, no cyanosis. Peripheral pulses are intact. - Labs CBC & Chem 7: 12/05/16 18:25 12/08/16 07:12 Labs: Microbiology - Last 24 Hours (Table) 12/05/16 18:25 Blood Culture - Preliminary Blood No Growth after 72 hours Assessment and Plan Plan: Impression: 1 acute COPD exacerbation/acute tracheobronchitis, failed outpatient therapy 2 shortness of breath secondary to above 3 leukocytosis 4 nicotine addiction/smoking Plan: The patient was seen and evaluated by Dr. Nunez. We have again educated the patient regarding complete smoking cessation. Counseling was done in 3-10 minutes. He is cleared for discharge from the pulmonary standpoint. He'll continue his course of antibiotics, prednisone taper and bronchodilators along with Symbicort. He'll follow-up in our office in 1 week's time while we can perform full pulmonary function testing to evaluate the severity of his COPD and make further recommendations regarding maintenance medications. He is encouraged to call sooner with any recurrence of symptoms or other questions or concerns.
--- NOTE | 2016-12-09 13:21 | P.DS ---
Providers Date of admission: 12/05/16 21:33 Expected date of discharge: 12/09/16 Attending physician: Bandar Moralez Consults: 12/05/16 21:32 Consult Physician Stat Consulting Provider: Lm Morris Consult Reason/Comments: copd acute exacerbation Do you want consulting provider notified?: Yes Primary care physician: Stated None Hospital Course: 51-year-old male patient, a known smoker, along with history of COPD, who came into the hospital approximately a week ago for increased shortness of breath. The patient was given a prednisone burst taper and the patient was discharged home. He was using Symbicort at home along with a Louis her nebulizer on an as -needed basis. He was getting progressively more worse and more short of breath to the point where the patient was unable to perform activities of daily life. Denied having any chest pain. A congested cough. Unable to bring up much sputum. No fever. No chills no night sweats. No pleurisy. No hemoptysis. No swelling lower extremities. He is in extensive smoker and at one point was smoking up to 4 pack of cigarettes a day currently is down, however he still smoking is also exposed to secondhand smoke his fianc smokes in the house. No previous history failure. No childhood asthma. No other complaints otherwise for now. The chest x-ray is free of any acute pulmonary infiltrates. pulmonary consultation was requested with recommendations. Chest x-ray showed no evidence of acute pulmonary infiltrate. The white count on admission was 19 could be secondary to steroids. Patient was seen in the emergency room prior to being admitted was given steroids and then discharged. Patient was started on aerosol bronchodilators with Symbicort monitored closely there was a noted improvement in the patient's clinical status and on the day of discharge was anxious to be discharged to home. Patient did qualify for home O2 this was set up by the family service caseworker. Patient had been borrowing a friend's nebulizer the family service caseworker did follow-up patient was given a prescription for nebulizer with DuoNeb medication to be put in the nebulizer to be used at home patient had been counseled every visit. Smoking cigarettes with smoking cessation information provided Impression Present on admission shortness of breath due to an acute exacerbation of COPD with acute tracheobronchitis failed outpatient therapy An extensive nicotine addiction smoking greater than a 40 year history Leukocytosis present on admission suspect reactive for steroid related on oral steroids 1 week prior Shortness of breath present on admission due to the acute exacerbation of COPD with tracheal bronchitis chest x-ray on admission chronic changes underlying COPD no infiltrate noted The above dictated assessment and findings were discussed with dr thu Barboza and the plan of care have been dictated as directed. Laura Worrell nurse practitioner acting as a scribe for dr moralez Plan - Discharge Summary New Discharge Prescriptions: Budesonide/Formoterol Fumarate [Symbicort 80-4.5 Mcg Inhaler] 2 puff INHALATION RT-BID #1 Ipratropium-Albuterol Nebulize [Duoneb 0.5 mg-3 mg/3 ml Soln] 3 ml INHALATION QID #120 neb Levofloxacin [Levaquin] 500 mg PO DAILY #7 tab Nicotine 21Mg/24Hr Patch [Habitrol] 1 patch TRANSDERM DAILY #30 patch predniSONE 40 mg PO DAILY #12 tab Discharge Medication List Budesonide/Formoterol Fumarate [Symbicort 80-4.5 Mcg Inhaler] 2 puff INHALATION RT-BID #1 12/09/16 [Rx] Ipratropium-Albuterol Nebulize [Duoneb 0.5 mg-3 mg/3 ml Soln] 3 ml INHALATION QID #120 neb 12/09/16 [Rx] Levofloxacin [Levaquin] 500 mg PO DAILY #7 tab 12/09/16 [Rx] Nicotine 21Mg/24Hr Patch [Habitrol] 1 patch TRANSDERM DAILY #30 patch 12/09/16 [ Rx] predniSONE 40 mg PO DAILY #12 tab 12/09/16 [Rx] Follow up Appointment(s)/Referral(s): None,Stated [Primary Care Provider] - 1-2 days Bandar Moralez MD [STAFF PHYSICIAN] - 12/11/16 Gordy Nunez MD [STAFF PHYSICIAN] - 1 Week Activity/Diet/Wound Care/Special Instructions: Provide patient with smoking cessation information patient's been advised to stop smoking cigarettes Discharge Disposition: HOME SELF-CARE
[2016-12-09 15:48] VITALS: PULSE 80
--- NOTE | 2016-12-09 21:06 | PN ---
CHIEF COMPLAINT: Difficulty breathing. HISTORY OF PRESENT ILLNESS: This gentleman is doing a little bit better and think he is able to go home. We will try and see hot is goes. PHYSICAL EXAMINATION: He still has occasional wheezes and rales. CARDIAC: Normal. IMPRESSION: Exacerbation of chronic obstructive pulmonary disease. PLAN: Home today and this will be arranged by the nurse practitioner.
[2016-12-10] MEDS ORDERED: predniSONE 20 MG TAB PO SCH (09:00)
== END 2016-12-09 16:00 | disposition home or self-care (01) | DRG 192 ==
LOC: EC 18:08 → 5MS5E 21:33
PROVIDERS: ADMIT Family Medicine; ATTEND Family Medicine
DX: J44.0 Chronic obstructive pulmonary disease with (acute) lower respiratory infection (principal); D72.829 Elevated white blood cell count, unspecified; F17.210 Nicotine dependence, cigarettes, uncomplicated; J20.9 Acute bronchitis, unspecified; J44.1 Chronic obstructive pulmonary disease with (acute) exacerbation; K21.9 Gastro-esophageal reflux disease without esophagitis; J45.909 Unspecified asthma, uncomplicated; R09.02 Hypoxemia; T38.0X5A Adverse effect of glucocorticoids and synthetic analogues, initial encounter; Z88.5 Allergy status to narcotic agent; Y92.009 Unspecified place in unspecified non-institutional (private) residence as the place of occurrence of the external cause
CPT/HCPCS: 36415; 71020; 80053; 82550; 82553; 83735; 83880; 84484; 85025; 85379; 85610; 85730; 87040; 93005; 94640; 94760

== ENCOUNTER 2016-12-12 23:39 | Emergency (ER) | payer MEDICARE ==
[2016-12-12] MEDS ORDERED: IPRATROPIUM-ALBUTEROL 3 ML NEB INHALATION STA (23:47)
--- NOTE | 2016-12-12 23:52 | ED ---
Chest Pain HPI - General Source: patient, family, EMS, RN notes reviewed, old records reviewed Mode of arrival: EMS - History of Present Illness MD Complaint: chest pain, other <Brendan Toledo - Last Filed: 12/13/16 00:52> <Tremaine Echevarria - Last Filed: 12/13/16 01:33> - General Stated Complaint: Chest Pain Time Seen by Provider: 12/12/16 23:39 - History of Present Illness Initial Comments: This is a 51-year-old male who was just discharged from hospital several days ago for COPD exacerbation who is brought in by EMS tonight with complaints of chest pain along with shortness of breath. He had retrosternal chest pain it was 10/10 in severity he did resolve after nitroglycerin and aspirin was given. Is currently 0/10 and shortness of breath with some wheezing the lower lobes. He states about a week ago he started developing shortness breath with cough of green and brown and yellow phlegm he states he quit smoking over last several days. He is a long-time smoker. He has no other complaints at this time. (Brendan Toledo) - Related Data Previous Rx's Medication Instructions Recorded Budesonide/Formoterol Fumarate 2 puff INHALATION RT-BID #1 12/09/16 [Symbicort 80-4.5 Mcg Inhaler] Ipratropium-Albuterol Nebulize 3 ml INHALATION QID #120 neb 12/09/16 [Duoneb 0.5 mg-3 mg/3 ml Soln] Levofloxacin [Levaquin] 500 mg PO DAILY #7 tab 12/09/16 Nicotine 21Mg/24Hr Patch [Habitrol] 1 patch TRANSDERM DAILY #30 patch 12/09/16 predniSONE 40 mg PO DAILY #12 tab 12/09/16 Allergies Allergy/AdvReac Type Severity Reaction Status Date / Time hydromorphone [From Dilaudid] Allergy Nausea & Verified 12/05/16 19:16 Vomiting methylprednisolone AdvReac Nausea & Verified 12/12/16 23:47 [From Solu-Medrol] Vomiting Review of Systems ROS Other: All systems not noted in ROS Statement are negative. <Brendan Toledo - Last Filed: 12/13/16 00:52> ROS Other: All systems not noted in ROS Statement are negative. <Tremaine Echevarria - Last Filed: 12/13/16 01:33> ROS Statement: Those systems with pertinent positive or pertinent negative responses have been documented in the HPI. EKG Findings - EKG Results: EKG: interpreted by GINO, sinus rhythm (Sinus tachycardia rate of 103. Interval 118 QRS duration 76 daily since QTC of 334/437 changes are seen. This is compared with an EKG dated 12/05/16 which shows no configuration changes) <Brendan Toledo - Last Filed: 12/13/16 00:52> Past Medical History Past Medical History: Asthma, COPD, GERD/Reflux Additional Past Medical History / Comment(s): COPD History of Any Multi-Drug Resistant Organisms: None Reported Past Surgical History: Hernia Repair, Orthopedic Surgery Additional Past Surgical History / Comment(s): right elbow surgery Past Anesthesia/Blood Transfusion Reactions: No Reported Reaction Past Psychological History: No Psychological Hx Reported Smoking Status: Current every day smoker Past Alcohol Use History: None Reported Past Drug Use History: Marijuana - Past Family History Mother Family Medical History: COPD Additional Family Medical History / Comment(s): father passed had cancer <Brendan Toledo - Last Filed: 12/13/16 00:52> General Exam General appearance: alert, anxious, in distress Head exam: Present: atraumatic, normocephalic, normal inspection Eye exam: Present: normal appearance, PERRL, EOMI. Absent: scleral icterus, conjunctival injection, periorbital swelling ENT exam: Present: normal exam, mucous membranes moist Neck exam: Present: normal inspection. Absent: tenderness, meningismus, lymphadenopathy Respiratory exam: Present: wheezes, rhonchi, decreased breath sounds, other ( Decreased breath sounds but rhonchi with wheezing and right lower lobe more than left.). Absent: respiratory distress, rales, stridor Cardiovascular Exam: Present: normal rhythm, tachycardia, normal heart sounds. Absent: systolic murmur, diastolic murmur, rubs, gallop, clicks GI/Abdominal exam: Present: soft, normal bowel sounds. Absent: distended, tenderness, guarding, rebound, rigid Extremities exam: Present: normal inspection, full ROM, normal capillary refill. Absent: tenderness, pedal edema, joint swelling, calf tenderness Back exam: Present: normal inspection Neurological exam: Present: alert, oriented X3, CN II-XII intact Psychiatric exam: Present: normal affect, normal mood Skin exam: Present: warm, dry, intact, normal color. Absent: rash <Brendan Toledo - Last Filed: 12/13/16 00:52> <Tremaine Echevarria - Last Filed: 12/13/16 01:33> - General Exam Comments Initial Comments: This is a well-developed well-nourished awake alert oriented times 3 male (Brendan Toledo) Course <Brendan Toledo - Last Filed: 12/13/16 00:52> <Tremaine Echevarria - Last Filed: 12/13/16 01:33> Vital Signs 12/12/16 12/12/16 12/13/16 23:47 23:56 00:03 Temperature 98.4 F Pulse Rate 102 H 106 H 100 Respiratory 16 Rate Blood Pressure 153/85 O2 Sat by Pulse 94 L Oximetry 12/13/16 01:26 Temperature Pulse Rate 62 Respiratory 16 Rate Blood Pressure 123/60 O2 Sat by Pulse 100 Oximetry - Reevaluation(s) Reevaluation #1: 12/13/16 00:53 Dr. Echevarria will make the final disposition. (Brendan Toledo) Chest Pain MDM <Brendan Toledo - Last Filed: 12/13/16 00:52> <Tremaine Echevarria - Last Filed: 12/13/16 01:33> - MDM Patient is a 51-year-old man with COPD, who was seen by Dr. Toledo and signed out to me pending the last few his lab studies. These have returned, and the patient states that he is now feeling that her and would like to go home. The patient does have a leukocytosis but is taking steroids for his COPD, there does not appear to be any pneumonia present. Discussed appropriate follow-up and further care as well as return parameters. (Tremaine Echevarria) Disposition <Brendan Toledo - Last Filed: 12/13/16 00:52> <Tremaine Echevarria - Last Filed: 12/13/16 01:33> Clinical Impression: Acute exacerbation of chronic obstructive pulmonary disease (COPD) Disposition: HOME SELF-CARE Condition: Fair Instructions: COPD (Chronic Obstructive Pulmonary Disease) (ED) Referrals: Bandar Moralez MD [Primary Care Provider] - 1-2 days
[2016-12-12 23:53] VITALS: RESP 16; TEMP 98.4
[2016-12-13 00:15] LABS: Basophils # (A) 0.1 k/uL (0-0.2); Basophils % (A) 0 %; CH 32.1; CHCM 34.7; Eosinophils # (A) 0.1 k/uL (0-0.7); Eosinophils % (A) 1 %; HGB 14.3 gm/dL (13.0-17.5); Luc % (Auto) 2; Lymphocytes # (A) 5.1 k/uL (1.0-4.8); Lymphocytes % (A) 26 %; MCH 32.3 pg (25.0-35.0); MCHC 34.8 g/dL (31.0-37.0); Mean Platelet Volume 7.1; Monocytes # (A) 1.1 k/uL (0-1.0); Monocytes % (A) 6 %; Neutrophils % (A) 66 %; RBC 4.41 m/uL (4.30-5.90); RDW 13.9 % (11.5-15.5); WBC 19.8 k/uL (3.8-10.6); WBC (Perox) 19.82
[2016-12-13 00:28] LABS: ALT 35 U/L (21-72); AST 18 U/L (17-59); Alkaline Phosphatase 67 U/L (38-126); Anion Gap 9 mmol/L; Blood Urea Nitrogen 23 mg/dL (9-20); Calcium 8.9 mg/dL (8.4-10.2); Carbon Dioxide 25 mmol/L (22-30); Chloride 104 mmol/L (98-107); Glucose 127 mg/dL (74-99); Magnesium 2.2 mg/dL (1.6-2.3); Non-African American GFR(MDRD) >60 (>60 ml/min/1.73 sqM); Potassium 3.7 mmol/L (3.5-5.1); Sodium 138 mmol/L (137-145); Total Bilirubin 0.2 mg/dL (0.2-1.3)
--- NOTE | 2016-12-13 00:32 | XR ---
EXAM: XR Chest, 2 Views CLINICAL HISTORY: Reason: difficulty breathing TECHNIQUE: Frontal and lateral views of the chest. COMPARISON: FINDINGS: Lungs: Unremarkable. No consolidation. Pleural space: Unremarkable. No pneumothorax. Heart: Unremarkable. No cardiomegaly. Mediastinum: Unremarkable. Bones/joints: Unremarkable for the patient's age. IMPRESSION: No acute findings or substantial change
[2016-12-13 00:36] LABS: Prothrombin Time 10.2 sec (9.0-12.0)
[2016-12-13 00:38] LABS: Partial Thromboplastin Time 21.3 sec (22.0-30.0)
[2016-12-13 00:48] LABS: Creatine Kinase 53 U/L (55-170); Manual Review Performed
[2016-12-13 01:01] LABS: Creatine Kinase MB 1.2 ng/mL (0.0-2.4); Troponin I <0.012 ng/mL (0.000-0.034)
[2016-12-13 01:35] VITALS: BP 157/93; PULSE 93
== END 2016-12-13 01:47 | disposition home or self-care (01) ==
LOC: EC 23:39
DX: J44.1 Chronic obstructive pulmonary disease with (acute) exacerbation (principal); J45.909 Unspecified asthma, uncomplicated; R07.2 Precordial pain; F17.200 Nicotine dependence, unspecified, uncomplicated; Z88.5 Allergy status to narcotic agent; Z88.8 Allergy status to other drugs, medicaments and biological substances
CPT/HCPCS: 36415; 71020; 80053; 82550; 82553; 83735; 83880; 84484; 85025; 85379; 85610; 85730; 87040; 93005; 94640; 99285

== ENCOUNTER 2018-05-28 15:35 | Inpatient (IN) | payer MEDICARE ==
[2018-05-28] MEDS ORDERED: IPRATROPIUM 0.5 MG/2.5 ML NEBU INHALATION STA (15:44)
[2018-05-28] MEDS ORDERED: ALBUTEROL NEBULIZED 2.5 MG/3 ML INHALATION STA (15:44)
[2018-05-28] MEDS ORDERED: methylPREDNISolone SOD SUCCI 125 MG/2 ML VIAL IV STA (15:44)
[2018-05-28] MEDS ORDERED: SODIUM CHLORIDE 0.9% 500 ML 500 ML IV STA (15:44)
--- NOTE | 2018-05-28 15:46 | ED ---
General Adult HPI - General Chief complaint: Shortness of Breath Stated complaint: CARLOS EDUARDO Time Seen by Provider: 05/28/18 15:41 Source: patient, RN notes reviewed, old records reviewed Mode of arrival: ambulatory Limitations: no limitations - History of Present Illness Initial comments: 52-year-old male history of COPD presents with worsening cough and dyspnea. Patient's symptoms have progressed over the past 2 days. He is coughing up green sputum. Denies fever but states he has had some chills. He is currently smoking. Denies lower extremity swelling or pain. He does report some mild chest pain worse with cough. No central radiating chest pain. - Related Data Home Medications Medication Instructions Recorded Confirmed Albuterol Sulfate [Proair Hfa] 1 - 2 puff INHALATION RT-Q6H PRN 05/28/18 Ipratropium-Albuterol Nebulize 3 ml INHALATION RT-QID 05/28/18 05/28/18 [Duoneb 0.5 mg-3 mg/3 ml Soln] Allergies Allergy/AdvReac Type Severity Reaction Status Date / Time hydromorphone [From Dilaudid] AdvReac Nausea & Verified 05/28/18 16:18 Vomiting methylprednisolone AdvReac Nausea & Verified 05/28/18 16:18 [From Solu-Medrol] Vomiting Review of Systems ROS Statement: Those systems with pertinent positive or pertinent negative responses have been documented in the HPI. ROS Other: All systems not noted in ROS Statement are negative. Past Medical History Past Medical History: Asthma, COPD, GERD/Reflux Additional Past Medical History / Comment(s): COPD History of Any Multi-Drug Resistant Organisms: None Reported Past Surgical History: Hernia Repair, Orthopedic Surgery Additional Past Surgical History / Comment(s): right elbow surgery Past Anesthesia/Blood Transfusion Reactions: No Reported Reaction Past Psychological History: No Psychological Hx Reported Smoking Status: Current every day smoker Past Alcohol Use History: None Reported Past Drug Use History: Marijuana - Past Family History Mother Family Medical History: COPD Additional Family Medical History / Comment(s): father passed had cancer General Exam Limitations: no limitations General appearance: alert, in no apparent distress Head exam: Present: atraumatic, normocephalic Eye exam: Present: normal appearance, PERRL ENT exam: Present: normal exam Neck exam: Present: normal inspection. Absent: tenderness, meningismus Respiratory exam: Present: respiratory distress, wheezes, rhonchi, decreased breath sounds, prolonged expiratory Cardiovascular Exam: Present: normal rhythm, tachycardia Extremities exam: Present: normal inspection, normal capillary refill. Absent: pedal edema Neurological exam: Present: alert, oriented X3 Psychiatric exam: Present: normal affect, normal mood Skin exam: Present: warm, dry, intact. Absent: cyanosis, diaphoretic Course Vital Signs 05/28/18 05/28/18 05/28/18 15:36 15:50 16:08 Temperature 98.2 F Pulse Rate 107 H 107 H 103 H Respiratory 28 H Rate Blood Pressure 120/69 O2 Sat by Pulse 94 L Oximetry EKG Findings - EKG Comments: EKG Findings:: EKG: Sinus tachycardia, rate of 105, SC interval 134, QRS duration 70, QTC 438, no ST segment elevation Medical Decision Making - Medical Decision Making 52 male history of COPD presents with worsening cough and dyspnea. Initial exam consistent with COPD exacerbation. Patient given steroids, albuterol, Atrovent in the emergency department. Chest x-ray obtained, negative for focal pneumonia or acute cardiopulmonary disease. Patient has elevated white blood cell count at 18.5, normal CMP, normal troponin and BNP. Patient will be admitted for treatment of COPD exacerbation. He was given 1 dose of IV antibiotics and emergency department given his productive cough and leukocytosis. - Lab Data Result diagrams: 05/28/18 15:50 05/28/18 15:50 Lab Results 05/28/18 05/28/18 05/28/18 Range/Units 15:50 15:50 15:50 WBC 18.5 H (3.8-10.6) k/uL RBC 4.73 (4.30-5.90) m/uL Hgb 14.7 (13.0-17.5) gm/dL Hct 44.9 (39.0-53.0) % MCV 95.1 (80.0-100.0) fL MCH 31.2 (25.0-35.0) pg MCHC 32.8 (31.0-37.0) g/dL RDW 14.0 (11.5-15.5) % Plt Count 264 (150-450) k/uL Neutrophils % 74 % Lymphocytes % 14 % Monocytes % 6 % Eosinophils % 4 % Basophils % 0 % Neutrophils # 13.8 H (1.3-7.7) k/uL Lymphocytes # 2.6 (1.0-4.8) k/uL Monocytes # 1.0 (0-1.0) k/uL Eosinophils # 0.7 (0-0.7) k/uL Basophils # 0.1 (0-0.2) k/uL PT (9.0-12.0) sec INR (<1.2) APTT (22.0-30.0) sec Sodium 138 (137-145) mmol/L Potassium 4.7 (3.5-5.1) mmol/L Chloride 107 (98-107) mmol/L Carbon Dioxide 21 L (22-30) mmol/L Anion Gap 10 mmol/L BUN 10 (9-20) mg/dL Creatinine 0.81 (0.66-1.25) mg/dL Est GFR (CKD-EPI)AfAm >90 (>60 ml/min/1.73 sqM) Est GFR (CKD-EPI)NonAf >90 (>60 ml/min/1.73 sqM) Glucose 99 (74-99) mg/dL Plasma Lactic Acid Cornelio (0.7-2.0) mmol/L Calcium 9.2 (8.4-10.2) mg/dL Magnesium 1.9 (1.6-2.3) mg/dL Total Bilirubin 0.7 (0.2-1.3) mg/dL AST 26 (17-59) U/L ALT 24 (21-72) U/L Alkaline Phosphatase 84 (38-126) U/L Total Creatine Kinase 91 (55-170) U/L CK-MB (CK-2) 1.2 (0.0-2.4) ng/mL CK-MB (CK-2) Rel Index 1.3 Troponin I <0.012 (0.000-0.034) ng/mL NT-Pro-B Natriuret Pep pg/mL Total Protein 7.9 (6.3-8.2) g/dL Albumin 4.2 (3.5-5.0) g/dL 05/28/18 05/28/18 05/28/18 Range/Units 15:50 15:50 15:50 WBC (3.8-10.6) k/uL RBC (4.30-5.90) m/uL Hgb (13.0-17.5) gm/dL Hct (39.0-53.0) % MCV (80.0-100.0) fL MCH (25.0-35.0) pg MCHC (31.0-37.0) g/dL RDW (11.5-15.5) % Plt Count (150-450) k/uL Neutrophils % % Lymphocytes % % Monocytes % % Eosinophils % % Basophils % % Neutrophils # (1.3-7.7) k/uL Lymphocytes # (1.0-4.8) k/uL Monocytes # (0-1.0) k/uL Eosinophils # (0-0.7) k/uL Basophils # (0-0.2) k/uL PT 10.2 (9.0-12.0) sec INR 1.0 (<1.2) APTT 25.4 (22.0-30.0) sec Sodium (137-145) mmol/L Potassium (3.5-5.1) mmol/L Chloride (98-107) mmol/L Carbon Dioxide (22-30) mmol/L Anion Gap mmol/L BUN (9-20) mg/dL Creatinine (0.66-1.25) mg/dL Est GFR (CKD-EPI)AfAm (>60 ml/min/1.73 sqM) Est GFR (CKD-EPI)NonAf (>60 ml/min/1.73 sqM) Glucose (74-99) mg/dL Plasma Lactic Acid Cornelio 1.2 (0.7-2.0) mmol/L Calcium (8.4-10.2) mg/dL Magnesium (1.6-2.3) mg/dL Total Bilirubin (0.2-1.3) mg/dL AST (17-59) U/L ALT (21-72) U/L Alkaline Phosphatase (38-126) U/L Total Creatine Kinase (55-170) U/L CK-MB (CK-2) (0.0-2.4) ng/mL CK-MB (CK-2) Rel Index Troponin I (0.000-0.034) ng/mL NT-Pro-B Natriuret Pep 40 pg/mL Total Protein (6.3-8.2) g/dL Albumin (3.5-5.0) g/dL Disposition Clinical Impression: Acute exacerbation of COPD with asthma, COPD exacerbation Disposition: ADMITTED IP TO THIS HOSP Condition: Stable Is patient prescribed a controlled substance at d/c from ED?: No Referrals: Bandar Moralez MD [Primary Care Provider] - 1-2 days Decision to Admit Reason: Admit from EC Decision Date: 05/28/18 Decision Time: 17:16
[2018-05-28 16:18] LABS: Basophils # (A) 0.1 k/uL (0-0.2); Basophils % (A) 0 %; Eosinophils # (A) 0.7 k/uL (0-0.7); Eosinophils % (A) 4 %; HCT 44.9 % (39.0-53.0); HGB 14.7 gm/dL (13.0-17.5); Lymphocytes # (A) 2.6 k/uL (1.0-4.8); Lymphocytes % (A) 14 %; MCH 31.2 pg (25.0-35.0); MCHC 32.8 g/dL (31.0-37.0); MCV 95.1 fL (80.0-100.0); Mean Platelet Volume 8.3; Monocytes % (A) 6 %; Neutrophils # (A) 13.8 k/uL (1.3-7.7); Neutrophils % (A) 74 %; Platelet Count 264 k/uL (150-450); RBC 4.73 m/uL (4.30-5.90); WBC 18.5 k/uL (3.8-10.6)
[2018-05-28 16:24] LABS: Partial Thromboplastin Time 25.4 sec (22.0-30.0); Prothrombin Time 10.2 sec (9.0-12.0)
[2018-05-28 16:27] LABS: ALT 24 U/L (21-72); AST 26 U/L (17-59); Albumin 4.2 g/dL (3.5-5.0); Alkaline Phosphatase 84 U/L (38-126); Anion Gap 10 mmol/L; Blood Urea Nitrogen 10 mg/dL (9-20); Calcium 9.2 mg/dL (8.4-10.2); Carbon Dioxide 21 mmol/L (22-30); Chloride 107 mmol/L (98-107); Glucose 99 mg/dL (74-99); Magnesium 1.9 mg/dL (1.6-2.3); Sodium 138 mmol/L (137-145); Total Bilirubin 0.7 mg/dL (0.2-1.3); Total Protein 7.9 g/dL (6.3-8.2)
[2018-05-28 16:28] LABS: Creatine Kinase 91 U/L (55-170)
[2018-05-28] MEDS ORDERED: AZITHROMYCIN 500 MG in SODIUM CHLORIDE 0.9% 250 ML IVPB STA (16:29)
[2018-05-28 16:38] LABS: Potassium 4.7 mmol/L (3.5-5.1)
[2018-05-28 16:41] LABS: Creatine Kinase MB 1.2 ng/mL (0.0-2.4); Troponin I <0.012 ng/mL (0.000-0.034)
--- NOTE | 2018-05-28 16:57 | XR ---
EXAMINATION TYPE: XR chest 2V DATE OF EXAM: 05/28/2018 COMPARISON: Chest radiograph 12/13/2016 HISTORY: Dyspnea and chest pain TECHNIQUE: Frontal and lateral views of the chest are obtained. FINDINGS: There is no focal air space opacity, pleural effusion, or pneumothorax seen. The cardiac silhouette size is within normal limits. The osseous structures are intact. IMPRESSION: No acute cardiopulmonary process. No significant interval change.
[2018-05-28] MEDS ORDERED: predniSONE 50 MG TAB PO STA (17:12)
[2018-05-28] MEDS ORDERED: ALBUTEROL NEBULIZED 2.5 MG/3 ML INHALATION PRN (17:12)
[2018-05-28] MEDS: IPRATROPIUM-ALBUTEROL 3 ML NEB INHALATION SCH (19:24)
[2018-05-29 01:49] VITALS: BMI 29.2
[2018-05-29] MEDS: IPRATROPIUM-ALBUTEROL 3 ML NEB INHALATION SCH ×4 (08:00→20:10)
[2018-05-29] MEDS: predniSONE 50 MG TAB PO SCH (09:31)
--- NOTE | 2018-05-29 15:16 | P.HPIM ---
History of Present Illness 52-year-old male history of COPD presents with worsening cough and dyspnea. Patient's symptoms have progressed over the past 3 days. He is coughing up green sputum. Denies fever but states he has had some chills. He is currently smoking. Denies lower extremity swelling or pain. He does report some mild chest pain worse with cough. No central radiating chest pain. Patient's chest x-ray did not show pneumonia. Patient doesn't use any onset at home continues to smoke nicotine cessation counseling was provided. Review of Systems REVIEW OF SYSTEMS: CONSTITUTIONAL: No fever, no malaise, no fatigue. HEENT: No recent visual problems or hearing problems. Denied any sore throat. CARDIOVASCULAR: No chest pain, orthopnea, PND, no palpitations, no syncope. PULMONARY: no hemoptysis. GASTROINTESTINAL: No diarrhea, no nausea, no vomiting, no abdominal pain. Normoactive bowel sounds. NEUROLOGICAL: No headaches, no weakness, no numbness. HEMATOLOGICAL: Denies any bleeding or petechiae. GENITOURINARY: Denies any burning micturition, frequency, or urgency. MUSCULOSKELETAL/RHEUMATOLOGICAL: Denies any joint pain, swelling, or any muscle pain. ENDOCRINE: Denies any polyuria or polydipsia. The rest of the 14-point review of systems is negative. Past Medical History Past Medical History: Asthma, COPD, GERD/Reflux Additional Past Medical History / Comment(s): COPD History of Any Multi-Drug Resistant Organisms: None Reported Past Surgical History: Hernia Repair, Orthopedic Surgery Additional Past Surgical History / Comment(s): right elbow surgery Past Anesthesia/Blood Transfusion Reactions: No Reported Reaction Past Psychological History: No Psychological Hx Reported Smoking Status: Current every day smoker Past Alcohol Use History: None Reported Past Drug Use History: Marijuana - Past Family History Mother Family Medical History: COPD Additional Family Medical History / Comment(s): father passed had cancer Medications and Allergies Home Medications Medication Instructions Recorded Confirmed Type Albuterol Sulfate [Proair Hfa] 1 - 2 puff INHALATION RT-Q6H PRN 05/28/18 History Ipratropium-Albuterol Nebulize 3 ml INHALATION RT-QID 05/28/18 05/28/18 History [Duoneb 0.5 mg-3 mg/3 ml Soln] Allergies Allergy/AdvReac Type Severity Reaction Status Date / Time hydromorphone [From Dilaudid] AdvReac Nausea & Verified 05/28/18 16:18 Vomiting methylprednisolone AdvReac Nausea & Verified 05/28/18 16:18 [From Solu-Medrol] Vomiting Physical Exam Vitals: Vital Signs Temp Pulse Pulse Resp BP BP Pulse Ox 05/29/18 12:07 97.5 F L 88 20 119/66 92 L 05/29/18 11:58 90 05/29/18 11:46 89 05/29/18 08:11 88 05/29/18 08:01 88 05/29/18 05:39 98.1 F 75 16 139/73 92 L 05/28/18 21:00 98.6 F 92 16 113/64 93 L 05/28/18 20:30 97.8 F 99 23 122/67 91 L 05/28/18 20:00 100 25 H 112/66 92 L 05/28/18 19:39 96 05/28/18 19:30 89 32 H 106/69 97 05/28/18 19:24 96 96 05/28/18 19:00 97 25 H 108/69 94 L 05/28/18 18:30 100 23 113/67 93 L 05/28/18 18:00 98 25 H 112/63 95 05/28/18 17:35 98.4 F 05/28/18 17:30 107 H 22 118/78 95 05/28/18 17:00 108 H 22 131/81 95 05/28/18 16:30 101 H 23 122/86 95 05/28/18 16:08 103 H 05/28/18 16:00 103 H 24 121/85 97 05/28/18 15:57 33 H 05/28/18 15:50 107 H 05/28/18 15:36 98.2 F 107 H 28 H 120/69 94 L Intake and Output 05/29/18 05/29/18 05/29/18 06:59 14:59 22:59 Intake Total 600 600 Balance 600 600 Intake: Oral 600 600 Other: Voiding Method Toilet Toilet # Voids 2 2 Weight 77.111 kg PHYSICAL EXAMINATION: GENERAL: The patient is alert and oriented x3, not in any acute distress. Well developed, well nourished. HEENT: Pupils are round and equally reacting to light. EOMI. No scleral icterus. No conjunctival pallor. Normocephalic, atraumatic. No pharyngeal erythema. No thyromegaly. CARDIOVASCULAR: S1 and S2 present. No murmurs, rubs, or gallops. PULMONARY: Rhonchorous breath sounds and expiratory wheezing on exam. ABDOMEN: Soft, nontender, nondistended, normoactive bowel sounds. No palpable organomegaly. MUSCULOSKELETAL: No joint swelling or deformity. EXTREMITIES: No cyanosis, clubbing, or pedal edema. NEUROLOGICAL: Gross neurological examination did not reveal any focal deficits. SKIN: No rashes. Results CBC & Chem 7: 05/28/18 15:50 05/28/18 15:50 Labs: Abnormal Lab Results - Last 24 Hours (Table) 05/28/18 05/28/18 Range/Units 15:50 15:50 WBC 18.5 H (3.8-10.6) k/uL Neutrophils # 13.8 H (1.3-7.7) k/uL Carbon Dioxide 21 L (22-30) mmol/L Assessment and Plan Plan: COPD exacerbation: Patient is on oral steroids to be continued inhalational treatments. Oxygen as required. Nicotine cessation counseling was provided -Bacterial bronchitis for which patient is on azithromycin which will be continued -Continue nicotine use -Gastroesophageal reflux disease -Occasional marijuana use.
[2018-05-29] MEDS: AZITHROMYCIN 500 MG TAB PO SCH (17:44)
[2018-05-29] MEDS: IPRATROPIUM-ALBUTEROL 3 ML NEB INHALATION PRN (23:56)
[2018-05-30] MEDS: IPRATROPIUM-ALBUTEROL 3 ML NEB INHALATION SCH ×4 (07:14→19:42)
[2018-05-30] MEDS: predniSONE 50 MG TAB PO SCH (08:31)
[2018-05-30] MEDS: AZITHROMYCIN 500 MG TAB PO SCH (16:47)
[2018-05-30] MEDS: IPRATROPIUM-ALBUTEROL 3 ML NEB INHALATION PRN (23:23)
[2018-05-31] MEDS: IPRATROPIUM-ALBUTEROL 3 ML NEB INHALATION SCH ×4 (07:20→19:41)
[2018-05-31] MEDS: predniSONE 50 MG TAB PO SCH (09:56)
--- NOTE | 2018-05-31 15:51 | PN ---
PROGRESS NOTE DATE OF SERVICE: 05/30/2018 CHIEF COMPLAINT: Exacerbation of COPD. HISTORY OF PRESENT ILLNESS: This gentleman is doing a little bit better. REVIEW OF SYSTEMS: He has had no chest pain or fever. PHYSICAL EXAM: He still has inspiratory and expiratory wheezing bilaterally with occasional rales and occasional rhonchi. Cardiac exam is normal. IMPRESSION: Exacerbation of chronic obstructive pulmonary disease and reactive airway disease. PLAN: Continue on current program. MMODL / IJN: [id number] /
--- NOTE | 2018-05-31 15:58 | PN ---
PROGRESS NOTE DATE OF SERVICE: 05/31/2018 CHIEF COMPLAINT: Exacerbation of COPD. HISTORY OF PRESENT ILLNESS: This gentleman is improving slowly, but he is still fairly tight and short of breath. He is also complaining of restless legs syndrome. PHYSICAL EXAM: He still has wheezing on inspiration and expiration with poor breath sounds in the lung bases. Cardiac exam is normal. Abdomen is soft. IMPRESSION: 1. Exacerbation of chronic obstructive pulmonary disease. 2. Restless legs syndrome. PLAN: 1. Try Requip 0.25 one at bedtime. 2. He will probably be able to go home tomorrow. MMODL / IJN: [id number] /
[2018-05-31] MEDS: AZITHROMYCIN 500 MG TAB PO SCH (17:03)
[2018-06-01] MEDS: predniSONE 50 MG TAB PO SCH (08:07)
[2018-06-01] MEDS: IPRATROPIUM-ALBUTEROL 3 ML NEB INHALATION SCH ×2 (08:10→11:39)
[2018-06-01 08:18] VITALS: RESP 18
[2018-06-01 11:49] VITALS: BP 102/65; TEMP 97.5
[2018-06-01 11:56] VITALS: PULSE 84
--- NOTE | 2018-06-01 13:56 | DS ---
DISCHARGE SUMMARY CHIEF COMPLAINT: Difficulty breathing. HISTORY OF PRESENT ILLNESS AND PHYSICAL EXAM: The details of this man's history and physical can be found in the initial workup. LABORATORY STUDIES: While he was in a hospital, he had laboratory studies, details which can be found in the laboratory section of his chart. COURSE IN HOSPITAL: After admission, he was placed on bedrest, started on intravenous fluids and IV inhaled steroids. He improved. He is doing well. It was felt he could go home on the 06/01/2018. He will be seen in the office in several days. He will be on a Medrol Dosepak. FINAL DIAGNOSIS: Exacerbation of chronic obstructive pulmonary disease. OPERATIONS: None. CONSULTATIONS: None. He is improved. MMODL / IJN: [id number] /
[2018-06-02] MEDS ORDERED: methylPREDNISolone 4 MG TAB TAPER PO SCH (09:00)
--- NOTE | 2018-06-02 10:49 | CDI ---
Last Revision, June 2017 Documentation Clarification Form Date: 06/02/2018 10:44:23 AM From: Anitha Mervin Phone: If you have a question about this query, please contact Tammy Busby Water Operator at [phone] between 8am and 5pm. Admit Date: 05/30/2018 12:14:00 PM Patient Name: Tj Johnson Visit Number: [id number] Discharge Date: 06/01 ATTENTION: The Clinical Documentation Specialists (CDI) and [facility] Coding Staff appreciate your assistance in clarifying documentation. Please respond to the clarification below the line at the bottom and electronically sign. The CDI & [facility] Coding staff will review the response and follow-up if needed. Please note: Queries are made part of the Legal Health Record. If you have any questions, please contact the author of this message via ITS. Dr. MARTINEZ, Bandar Woodall MD Documentation of exacerbation of COPD and "bacterial bronichitis for which patient on Azithromycin which will be continued." This documentation in the H and P. Please clarify acuity of the bronchitis. History/Risk Factors: COPD exacerbation Family history of respiratory conditions Present or past smoker/PPD Present smoker Vital Signs/Pulse Oximetry: 98.2 F, 107, 28-33 Resp., 120/69 94% R Treatment: Azithromycin In your professional opinion, can you please clarify the acuity of the bacterial bronchitis. Acute bacterial bronchitis Chronic bacterial bronchitis Bacterial bronchitis ruled out Other condition, please specify Unable to determine MTDD
--- NOTE | 2018-06-03 09:37 | MISC ---
MISCELLANOUS REPORT This is to clarify acute bacterial bronchitis. Other condition COPD. MMODL / IJN: [id number] /
== END 2018-06-01 13:54 | disposition home or self-care (01) | DRG 192 ==
LOC: EC 15:35 → 3NMEDONC 17:13 → OBSVTOIN 05-30 12:14
PROVIDERS: ADMIT Family Medicine; ATTEND Family Medicine
DX: J44.1 Chronic obstructive pulmonary disease with (acute) exacerbation (principal); J20.8 Acute bronchitis due to other specified organisms; J44.0 Chronic obstructive pulmonary disease with (acute) lower respiratory infection; Z71.6 Tobacco abuse counseling; F17.210 Nicotine dependence, cigarettes, uncomplicated; G25.81 Restless legs syndrome; K21.9 Gastro-esophageal reflux disease without esophagitis; Z82.5 Family history of asthma and other chronic lower respiratory diseases; Z80.9 Family history of malignant neoplasm, unspecified; Z79.899 Other long term (current) drug therapy; Z88.5 Allergy status to narcotic agent; Z88.8 Allergy status to other drugs, medicaments and biological substances
CPT/HCPCS: 36415; 71046; 80053; 82550; 82553; 83605; 83735; 83880; 84484; 85025; 85610; 85730; 87040; 93005; 94640; 94760; 96365; 96367; 99285

== ENCOUNTER 2023-06-06 22:53 | Inpatient (IN) | payer MEDICARE ==
[2023-06-06] MEDS ORDERED: IPRATROPIUM 0.5 MG/2.5 ML NEBU INHALATION STA (23:19)
[2023-06-06] MEDS ORDERED: ALBUTEROL NEBULIZED 2.5 MG/3 ML INHALATION STA (23:19)
[2023-06-06] MEDS ORDERED: methylPREDNISolone SOD SUCCI 125 MG/2 ML VIAL IV STA (23:19)
--- NOTE | 2023-06-06 23:22 | ED ---
General Adult HPI - General Chief complaint: Shortness of Breath Stated complaint: SOB Time Seen by Provider: 06/06/23 22:58 Source: patient, RN notes reviewed, old records reviewed Mode of arrival: wheelchair Limitations: no limitations - History of Present Illness Initial comments: 57-year-old male presenting for evaluation of cough and dyspnea. History of COPD, current smoker. He states over the past 24-48 hours she's had increased cough and dyspnea. No fever. No central chest pain. No lower extremity pain or swelling. - Related Data Home Medications Medication Instructions Recorded Confirmed Albuterol Sulfate [Proair Hfa] 1 - 2 puff INHALATION RT-Q6H PRN 05/28/18 05/28/18 Ipratropium-Albuterol Nebulize 3 ml INHALATION RT-QID 05/28/18 05/28/18 [Duoneb 0.5 mg-3 mg/3 ml Soln] Previous Rx's Medication Instructions Recorded methylPREDNISolone Dose Pack 24 mg PO DAILY 7 Days #1 pack 06/01/18 [Medrol Dose Pack] rOPINIRole HCL [Requip] 0.25 mg PO HS #30 tab 06/01/18 Allergies Allergy/AdvReac Type Severity Reaction Status Date / Time hydromorphone [From Dilaudid] AdvReac Nausea & Verified 06/06/23 22:57 Vomiting Review of Systems ROS Statement: Those systems with pertinent positive or pertinent negative responses have been documented in the HPI. ROS Other: All systems not noted in ROS Statement are negative. Past Medical History Past Medical History: Asthma, COPD, GERD/Reflux Additional Past Medical History / Comment(s): COPD History of Any Multi-Drug Resistant Organisms: None Reported Past Surgical History: Hernia Repair, Orthopedic Surgery Additional Past Surgical History / Comment(s): right elbow surgery Past Anesthesia/Blood Transfusion Reactions: No Reported Reaction Past Psychological History: No Psychological Hx Reported Smoking Status: Current every day smoker Past Alcohol Use History: None Reported Past Drug Use History: Marijuana - Past Family History Mother Family Medical History: COPD Additional Family Medical History / Comment(s): father passed had cancer General Exam Limitations: no limitations General appearance: alert, in distress Head exam: Present: atraumatic, normocephalic Eye exam: Present: normal appearance, PERRL ENT exam: Present: mucous membranes dry Neck exam: Present: normal inspection Respiratory exam: Present: respiratory distress, wheezes, rhonchi, decreased breath sounds Cardiovascular Exam: Present: regular rate, normal rhythm GI/Abdominal exam: Present: soft. Absent: distended, tenderness, guarding Extremities exam: Present: normal inspection, normal capillary refill. Absent: pedal edema Neurological exam: Present: alert, oriented X3, CN II-XII intact. Absent: motor sensory deficit Psychiatric exam: Present: normal affect, normal mood Skin exam: Present: warm, dry, intact. Absent: cyanosis, diaphoretic Course Vital Signs 06/06/23 06/06/23 06/06/23 22:54 23:05 23:49 Temperature 98.0 F Pulse Rate 103 H 113 H Respiratory 26 H 24 Rate Blood Pressure 185/121 O2 Sat by Pulse 88 L Oximetry 06/07/23 00:07 Temperature Pulse Rate 110 H Respiratory Rate Blood Pressure O2 Sat by Pulse Oximetry Medical Decision Making - Medical Decision Making Was pt. sent in by a medical professional or institution (, PA, PROMOTIONS ASSISTANT, urgent care, hospital, or senior care...) When possible be specific @ -No Did you speak to anyone other than the patient for history (EMS, parent, family, police, friend...)? What history was obtained from this source @ -No Did you review nursing and triage notes (agree or disagree)? Why? @ -I reviewed and agree with nursing and triage notes Were old charts reviewed (outside hosp., previous admission, EMS record, old EKG, old radiological studies, urgent care reports/EKG's, senior care records)? Report findings @ -No old charts were reviewed Differential Diagnosis (chest pain, altered mental status, abdominal pain women, abdominal pain men, vaginal bleeding, weakness, fever, dyspnea, syncope, headache, dizziness, GI bleed, back pain, seizure, CVA, palpatations, mental health, musculoskeletal)? @ -Differential Dyspnea: Coronary syndrome, arrhythmia, tamponade, asthma, COPD, pulmonary embolism, pneumonia, pneumothorax, pulmonary effusion, anaphylaxis, diabetic ketoacidosis, flailed chest, pulmonary contusion, diaphragmatic rupture, anemia, neuromuscular, this is not meant to be an all-inclusive list. EKG interpreted by me (3pts min.). @ -Sinus rhythm rate of 96, MS interval 138, QRS duration 81, QTC [address] segment elevation. X-rays interpreted by me (1pt min.). @ -Chest x-ray negative for pneumothorax, no consolidated pneumonia. CT interpreted by me (1pt min.). @ -None done U/S interpreted by me (1pt. min.). @ -None done What testing was considered but not performed or refused? (CT, X-rays, U/S, labs)? Why? @ -None What meds were considered but not given or refused? Why? @ -None Did you discuss the management of the patient with other professionals (professionals i.e. , PA, PROMOTIONS ASSISTANT, lab, RT, psych nurse, case management social worker, crane mechanic, teacher, event security officer, family independence case manager)? Give summary @ -No Was smoking cessation discussed for >3mins.? @ -No Was critical care preformed (if so, how long)? @Yes, 35 minutes Were there social determinants of health that impacted care today? How? (Homelessness, low income, unemployed, alcoholism, drug addiction, transportation, low edu. Level, literacy, decrease access to med. care, [place] [facility], rehab)? @ -No Was there de-escalation of care discussed even if they declined (Discuss DNR or withdrawal of care, Hospice)? DNR status @ -No What co-morbidities impacted this encounter? (DM, HTN, Smoking, COPD, CAD, Cancer, CVA, ARF, Chemo, Hep., AIDS, mental health diagnosis, sleep apnea, morbid obesity)? @ -[COPD Was patient admitted / discharged? Hospital course, mention meds given and route, prescriptions, significant lab abnormalities, going to OR and other pertinent info. @ -[57-year-old male presenting with tachypnea, tachycardia and diffuse wheezing with moderate respiratory distress. History of COPD and is a current smoker. Patient has mild leukocytosis, normal CMP, negative troponin, negative BMP. He does have oxygen requirement with initial oxygenation in the mid 80s. He will be admitted for treatment of COPD exacerbation. Patient had been given a dose of IV steroids and developed vomiting immediately after administration. He will be placed on oral steroids as well as albuterol and Atrovent. Patient admitted to Dr. Moralez. Undiagnosed new problem with uncertain prognosis? @ -No Drug Therapy requiring intensive monitoring for toxicity (Heparin, Nitro, Insulin, Cardizem)? @ -No Were any procedures done? @ -No Diagnosis/symptom? @COPD exacerbation Acute, or Chronic, or Acute on Chronic? @Acute on chronic Uncomplicated (without systemic symptoms) or Complicated (systemic symptoms)? @ -[Complicated Side effects of treatment? @ -No Exacerbation, Progression, or Severe Exacerbation? @ -No Poses a threat to life or bodily function? How? (Chest pain, USA, NC, pneumonia, PE, COPD, DKA, ARF, appy, cholecystitis, CVA, Diverticulitis, Homicidal, Suicidal, threat to staff... and all critical care pts) @ -[Yes, respiratory failure - Lab Data Result diagrams: 06/06/23 23:22 06/06/23 23:22 Lab Results 06/06/23 06/06/23 06/06/23 Range/Units 23:22 23:22 23:22 WBC 13.8 H (3.8-10.6) k/uL RBC 4.79 (4.30-5.90) m/uL Hgb 15.8 (13.0-17.5) gm/dL Hct 46.7 (39.0-53.0) % MCV 97.5 (80.0-100.0) fL MCH 33.0 (25.0-35.0) pg MCHC 33.8 (31.0-37.0) g/dL RDW 13.9 (11.5-15.5) % Plt Count 259 (150-450) k/uL MPV 8.3 Neutrophils % 69 % Lymphocytes % 18 % Monocytes % 6 % Eosinophils % 4 % Basophils % 0 % Neutrophils # 9.5 H (1.3-7.7) k/uL Lymphocytes # 2.5 (1.0-4.8) k/uL Monocytes # 0.9 (0-1.0) k/uL Eosinophils # 0.6 (0-0.7) k/uL Basophils # 0.1 (0-0.2) k/uL PT 10.5 (10.0-12.5) sec INR 1.0 (<1.2) APTT 24.3 (22.0-30.0) sec Sodium 141 (137-145) mmol/L Potassium 4.5 (3.5-5.1) mmol/L Chloride 109 H (98-107) mmol/L Carbon Dioxide 25 (22-30) mmol/L Anion Gap 7 mmol/L BUN 10 (9-20) mg/dL Creatinine 0.83 (0.66-1.25) mg/dL Est GFR (CKD-EPI)AfAm >90 (>60 ml/min/1.73 sqM) Est GFR (CKD-EPI)NonAf >90 (>60 ml/min/1.73 sqM) Glucose 93 (74-99) mg/dL Plasma Lactic Acid Cornelio (0.7-2.0) mmol/L Calcium 9.1 (8.4-10.2) mg/dL Total Bilirubin 0.4 (0.2-1.3) mg/dL AST 23 (17-59) U/L ALT 24 (4-49) U/L Alkaline Phosphatase 90 (38-126) U/L Troponin I (0.000-0.034) ng/mL NT-Pro-B Natriuret Pep <20 pg/mL Total Protein 7.6 (6.3-8.2) g/dL Albumin 4.2 (3.5-5.0) g/dL Influenza Type A (PCR) (Not Detectd) Influenza Type B (PCR) (Not Detectd) RSV (PCR) (Not Detectd) SARS-CoV-2 (PCR) (Not Detectd) 06/06/23 06/06/23 06/06/23 Range/Units 23:22 23:22 23:22 WBC (3.8-10.6) k/uL RBC (4.30-5.90) m/uL Hgb (13.0-17.5) gm/dL Hct (39.0-53.0) % MCV (80.0-100.0) fL MCH (25.0-35.0) pg MCHC (31.0-37.0) g/dL RDW (11.5-15.5) % Plt Count (150-450) k/uL MPV Neutrophils % % Lymphocytes % % Monocytes % % Eosinophils % % Basophils % % Neutrophils # (1.3-7.7) k/uL Lymphocytes # (1.0-4.8) k/uL Monocytes # (0-1.0) k/uL Eosinophils # (0-0.7) k/uL Basophils # (0-0.2) k/uL PT (10.0-12.5) sec INR (<1.2) APTT (22.0-30.0) sec Sodium (137-145) mmol/L Potassium (3.5-5.1) mmol/L Chloride (98-107) mmol/L Carbon Dioxide (22-30) mmol/L Anion Gap mmol/L BUN (9-20) mg/dL Creatinine (0.66-1.25) mg/dL Est GFR (CKD-EPI)AfAm (>60 ml/min/1.73 sqM) Est GFR (CKD-EPI)NonAf (>60 ml/min/1.73 sqM) Glucose (74-99) mg/dL Plasma Lactic Acid Cornelio 1.1 (0.7-2.0) mmol/L Calcium (8.4-10.2) mg/dL Total Bilirubin (0.2-1.3) mg/dL AST (17-59) U/L ALT (4-49) U/L Alkaline Phosphatase (38-126) U/L Troponin I 0.028 (0.000-0.034) ng/mL NT-Pro-B Natriuret Pep pg/mL Total Protein (6.3-8.2) g/dL Albumin (3.5-5.0) g/dL Influenza Type A (PCR) Not Detected (Not Detectd) Influenza Type B (PCR) Not Detected (Not Detectd) RSV (PCR) Not Detected (Not Detectd) SARS-CoV-2 (PCR) Not Detected (Not Detectd) Critical Care Time Critical Care Time: Yes Total Critical Care Time: 35 Disposition Clinical Impression: Acute exacerbation of COPD with asthma Disposition: ADMITTED IP TO THIS HOSP Condition: Stable Is patient prescribed a controlled substance at d/c from ED?: No Referrals: Bandar Moralez MD [Primary Care Provider] - 1-2 days Time of Disposition: 00:21
[2023-06-06] MEDS ORDERED: ONDANSETRON 4 MG/2 ML VIAL IVP STA (23:31)
[2023-06-06 23:34] LABS: Basophils # (A) 0.1 k/uL (0-0.2); Basophils % (A) 0 %; Eosinophils # (A) 0.6 k/uL (0-0.7); Eosinophils % (A) 4 %; HCT 46.7 % (39.0-53.0); HGB 15.8 gm/dL (13.0-17.5); Lymphocytes # (A) 2.5 k/uL (1.0-4.8); Lymphocytes % (A) 18 %; MCHC 33.8 g/dL (31.0-37.0); MCV 97.5 fL (80.0-100.0); Mean Platelet Volume 8.3; Monocytes # (A) 0.9 k/uL (0-1.0); Monocytes % (A) 6 %; Neutrophils # (A) 9.5 k/uL (1.3-7.7); Neutrophils % (A) 69 %; Platelet Count 259 k/uL (150-450); RBC 4.79 m/uL (4.30-5.90); RDW 13.9 % (11.5-15.5); WBC 13.8 k/uL (3.8-10.6)
[2023-06-06 23:46] LABS: ALT 24 U/L (4-49); AST 23 U/L (17-59); African American GFR (CKD) >90 (>60 ml/min/1.73 sqM); Albumin 4.2 g/dL (3.5-5.0); Alkaline Phosphatase 90 U/L (38-126); Anion Gap 7 mmol/L; Blood Urea Nitrogen 10 mg/dL (9-20); Calcium 9.1 mg/dL (8.4-10.2); Carbon Dioxide 25 mmol/L (22-30); Chloride 109 mmol/L (98-107); Glucose 93 mg/dL (74-99); Non-African American GFR(CKD) >90 (>60 ml/min/1.73 sqM); Potassium 4.5 mmol/L (3.5-5.1); Sodium 141 mmol/L (137-145); Total Bilirubin 0.4 mg/dL (0.2-1.3); Total Protein 7.6 g/dL (6.3-8.2)
[2023-06-06 23:52] LABS: Partial Thromboplastin Time 24.3 sec (22.0-30.0); Prothrombin Time 10.5 sec (10.0-12.5)
[2023-06-06 23:54] LABS: NT-Pro-B-Type Natriuretic Pept <20 pg/mL
[2023-06-07] MEDS ORDERED: ACETAMINOPHEN TAB 325 MG TAB PO PRN (00:17)
[2023-06-07] MEDS ORDERED: NALOXONE 0.4 MG/ML 1 ML VIAL IVP PRN (00:17)
[2023-06-07] MEDS ORDERED: IPRATROPIUM-ALBUTEROL 3 ML NEB INHALATION PRN (00:17)
[2023-06-07] MEDS ORDERED: AZITHROMYCIN 500 MG in SODIUM CHLORIDE 0.9% 250 ML IVPB STA (00:21)
--- NOTE | 2023-06-07 01:40 | XR ---
EXAM: XR Chest, 2 Views CLINICAL HISTORY: ITS.REASON XR Reason: difficulty breathing TECHNIQUE: Frontal and lateral views of the chest. COMPARISON: No relevant prior studies available. FINDINGS: Lungs: Unremarkable. No consolidation. Pleural space: Unremarkable. No pneumothorax. Heart: Unremarkable. No cardiomegaly. Mediastinum: Unremarkable. Normal mediastinal contour. Bones/joints: Unremarkable. No acute fracture. IMPRESSION: Normal chest x-rays.
[2023-06-07] MEDS: predniSONE 20 MG TAB PO SCH (08:47)
[2023-06-07] MEDS: IPRATROPIUM-ALBUTEROL 3 ML NEB INHALATION SCH ×4 (09:45→20:32)
[2023-06-07] MEDS: SYMBICORT 160-4.5 MCG INHALER INHALATION SCH (20:32)
[2023-06-08] MEDS: IPRATROPIUM-ALBUTEROL 3 ML NEB INHALATION SCH ×7 (00:37→23:23)
[2023-06-08] MEDS: SYMBICORT 160-4.5 MCG INHALER INHALATION SCH ×2 (07:54→19:23)
[2023-06-08] MEDS: predniSONE 20 MG TAB PO SCH (08:00)
[2023-06-09] MEDS: IPRATROPIUM-ALBUTEROL 3 ML NEB INHALATION SCH ×4 (03:26→15:37)
[2023-06-09] MEDS: predniSONE 20 MG TAB PO SCH (07:37)
[2023-06-09] MEDS: SYMBICORT 160-4.5 MCG INHALER INHALATION SCH (08:15)
[2023-06-09 08:26] VITALS: RESP 18
[2023-06-09 16:35] VITALS: BP 122/73; PULSE 76; TEMP 97.8
--- NOTE | 2023-06-09 22:07 | HP ---
HISTORY AND PHYSICAL CHIEF COMPLAINT: Difficulty breathing. HISTORY OF PRESENT ILLNESS: This is another admission for this 57-year-old white male. He presented to the emergency room with shortness of breath. He had started with upper respiratory infection. REVIEW OF SYSTEMS: He has had no chills, fever, hemoptysis, abdominal pain, nausea, vomiting, diarrhea, melena, hematochezia, jaundice, hepatitis, hematuria, frequency, urgency, nocturia, incontinence, renal failure, etc. Past medical history, family history, personal and social histories reveal that he is on albuterol MDI, updrafts with DuoNeb, atorvastatin, vitamin D3, and Symbicort. He does smoke. PHYSICAL EXAMINATION: VITAL SIGNS: Normal. HEAD, EARS, EYES, NOSE, MOUTH, AND THROAT: Normal. NECK: Neck veins were not distended. Thyroid was not enlarged. CHEST: Demonstrated increased AP diameter with poor breath sounds. Wheezing and inspiratory and expiratory, wheezing and prolonged expiratory phase. CARDIAC: Demonstrates sinus rhythm. ABDOMEN: Slightly protuberant. Abdomen is soft and nontender. EXTREMITIES: Normal. NEUROLOGICAL: Intact. He is admitted to the hospital with diagnosis of exacerbation of COPD. PLAN: 1. Bedrest. 2. IV fluids. 3. IV and inhaled steroids. 4. Updrafts. MMODL / IJN: [id number] /
[2023-06-10] MEDS ORDERED: methylPREDNISolone 4 MG TAB TAPER PO SCH (09:00)
--- NOTE | 2023-06-10 15:44 | DS ---
DISCHARGE SUMMARY CHIEF COMPLAINT: Difficulty breathing. HISTORY OF PRESENT ILLNESS AND PHYSICAL EXAM: Details of this man's history and physical can be found in the initial workup. LABORATORY STUDIES: While he is in the hospital, he had laboratory studies, details of which can be found in the laboratory section of his chart. COURSE IN THE HOSPITAL: After admission, he was placed at bedrest, started on intravenous fluids along with nasal O2 and IV and inhaled steroids. He improved quickly and was anxious to be discharged on . He will go home on his usual activity and diet and will be given Medrol Dosepak. He will be seen in the office several days. FINAL DIAGNOSIS: Exacerbation of chronic obstructive pulmonary disease. OPERATIONS: None. CONSULTATION: None. He is improved. MMODL / IJN: [id number] /
--- NOTE | 2023-06-10 16:26 | PN ---
PROGRESS NOTE DATE OF SERVICE: 06/08/2023 CHIEF COMPLAINT: Exacerbation of COPD. HISTORY OF PRESENT ILLNESS: This gentleman is still quite dyspneic, but he is definitely improved. PHYSICAL EXAMINATION: GENERAL: Color is good. CARDIAC: Normal. CHEST: He still has inspiratory and expiratory wheezing with scattered rales throughout. ABDOMEN: Soft and nontender. IMPRESSION: Exacerbation of chronic obstructive pulmonary disease. PLAN: Continue with current program. MMODL / IJN: [id number] /
--- NOTE | 2023-06-15 17:01 | CDI ---
Documentation Clarification Form Date: 06/15/2023 04:51:01 PM From: Valery Koehler RN, CCDS Email: [email or web address] Admit Date: 06/07/2023 12:17:00 AM Patient Name: Tj Johnson Visit Number: [id number] Discharge Date: 06/09/2023 05:15:00 PM ATTENTION: The Clinical Documentation Specialists (CDI) and [facility] Coding Staff appreciate your assistance in clarifying documentation. Please respond to the clarification below the line at the bottom and electronically sign. The CDI & [facility] Coding staff will review the response and follow-up if needed. Please note: Queries are made part of the Legal Health Record. If you have any questions, please contact the author of this message via ITS. Dr. Bandar Moralez Your patient had COPD exacerbation and required supplemental oxygen. Based on this information and the findings below, is there an additional diagnosis that is clinically appropriate for this patient? History/Risk Factors: COPD, asthma and GERD. Presented with cough and dyspnea. Admitted with COPD exacerbation. Tobacco use: current smoker Clinical Indicators: ED: "respiratory distress, wheezes, rhonchi, decreased breath sounds. He does have oxygen requirement with initial oxygenation in the mid-80s." H&P: "inspiratory and expiratory, wheezing. Exacerbation of COPD." 06/06 Vital signs: HR 113, RR 26 06/06 Pulse oximetry: 88% Treatment: Breathing treatment: Duonebs Q4H 06/07-06/09 O2: 3-4LNC Is there an additional diagnosis that is clinically appropriate for this patient? [ ] Acute Hypoxic Respiratory Failure (pO2 <60 mm Hg or SpO2 <91% on room air) [ ] No additional diagnosis [ ] Other Diagnosis, please specify [ ] Unable to determine MTDD
== END 2023-06-09 17:15 | disposition home or self-care (01) | DRG 192 ==
LOC: EC 22:53 → 5NMEDONC 06-07 00:17
PROVIDERS: ADMIT Family Medicine; ATTEND Family Medicine
DX: J44.1 Chronic obstructive pulmonary disease with (acute) exacerbation (principal); K21.9 Gastro-esophageal reflux disease without esophagitis; Z20.822 Contact with and (suspected) exposure to COVID-19; F17.210 Nicotine dependence, cigarettes, uncomplicated; Z88.5 Allergy status to narcotic agent
CPT/HCPCS: 36415; 71046; 80053; 83605; 83880; 84484; 85025; 85610; 85730; 87636; 93005; 94640; 96374; 96375; 99291